=== PATIENT | female | born 1950 | race Caucasian/White ===

== ENCOUNTER 2016-11-11 20:24 | Emergency (ER) | payer MEDICARE ==
[~2016-11-11] VITALS: Ht 167.6 cm; Wt 72.7 kg
[~2016-11-11 20:24] MED LIST: ALLERGY RELIEF25 MG PO; CRESTOR10 MG PO; CYMBALTA60 MG MT; FLUOXETINE20 MG MT; GABAPENTIN300 MG MT; GLIPIZIDE ER2.5 MG PO; LEVOTHYROXIN25 MC1 MT; LEVOTHYROXIN50 MC1 PO; LISINOPRIL20 M1 PO; METOPROLOL SUC100 MG PO; OXYBUTYNIN5 MG MT; OXYCODONE HCL5 MG PO; PROZAC20 M1 PO; RESTORIL15 M1 PO; ZOFRAN4 MG/TAB PO; [UNRECOGNIZED DRUG - OTHER]
[2016-11-11 22:09] LABS: HEMATOCRIT 29.1 % (37.0-47.0); HEMOGLOBIN 9.6 g/dl (12.0-16.0); IMMATURE GRANULOCYTES 0.6 % (0.0-1.0); MEAN CELL VOLUME 99.7 fL CALC (80.0-100.0); MEAN CORPUSCULAR HGB 32.9 pG CALC (26.0-32.0); NEUT# 14.13 thou/uL (2.00-7.15); RED BLOOD COUNT 2.92 mill/uL (4.20-5.60); RED CELL DISTRI WIDTH 13.1 % (11.5-15.5)
[2016-11-11 22:21] LABS: ALBUMIN 3.3 g/dL (3.2-5.0); BILIRUBIN, TOTAL 0.4 mg/dL (0.0-1.4); CALCIUM 9.6 mg/dL (8.4-10.2); CREATININE 1.1 mg/dL (0.5-1.0); POTASSIUM 3.9 mmol/l (3.5-5.1); TOTAL PROTEIN 6.3 g/dL (6.3-8.2)
[2016-11-11 23:47] LABS: URINE BILIRUBIN - DIPSTICK NEGATIVE (NEGATIVE); URINE BLOOD DIPSTICK MODERATE (NEGATIVE); URINE CLARITY TURBID; URINE COLOR YELLOW; URINE GLUCOSE - DIPSTICK NEGATIVE (NEGATIVE); URINE KETONE TRACE mg/dL (NEGATIVE); URINE LEUK ESTERASE TRACE (NEGATIVE); URINE PROTEIN - DIPSTICK TRACE mg/dL (NEG-TRACE); URINE UROBILINOGEN - DIPSTICK 0.2 E.U./dL (0.2)
[2016-11-11 23:50] LABS: URINE NITRITE - DIPSTICK POSITIVE (Negative)
[2016-11-11 23:55] LABS: URINE SQUAMOUS EPITHELIAL CELL FEW EPI/hpf (0-FEW)
[2016-11-11 23:56] LABS: URINE AMORPH SEDIMENT MODERATE hpf (NONE-FEW); URINE BACTERIA MODERATE hpf; URINE MUCUS FEW hpf (NONE-FEW); URINE TRIP PHOS CRYSTALS MODERATE lpf
[2016-11-12] MEDS ORDERED: MORPHINE SUL15 M2 PO (00:25)
[2016-11-12 01:05] VITALS: BP 129/49
--- NOTE | 2016-11-12 01:32 | NUR ---
BREATHING TREATMENT GIVEN FOR WHEEZING. IT WAS EXPLAINT TO HER HOW TO DEPOSIT THE PARTICLES DOWN TO HER LUNGS BY TAKING DEEP BREATH IN.
== END 2016-11-12 01:40 | disposition short-term general hospital (02) ==
LOC: ED 20:24
PROVIDERS: Emergency Medicine
DX: T81.4XXA Infection following a procedure, initial encounter (principal); K52.9 Noninfective gastroenteritis and colitis, unspecified; N39.0 Urinary tract infection, site not specified; D72.829 Elevated white blood cell count, unspecified; R50.9 Fever, unspecified; F17.210 Nicotine dependence, cigarettes, uncomplicated; E11.9 Type 2 diabetes mellitus without complications; R11.10 Vomiting, unspecified; I10 Essential (primary) hypertension; B96.4 Proteus (mirabilis) (morganii) as the cause of diseases classified elsewhere

== ENCOUNTER 2016-12-02 14:21 | Emergency (ER) | payer MEDICARE ==
[~2016-12-02] VITALS: Ht 167.6 cm; Wt 72.7 kg
[~2016-12-02 14:21] MED LIST changes: +MORPHINE SUL15 M2 PO
[2016-12-02 15:01] LABS: HEMATOCRIT 38.2 % (37.0-47.0); HEMOGLOBIN 11.8 g/dl (12.0-16.0); IMMATURE GRANULOCYTES 2.2 % (0.0-1.0); MEAN CELL VOLUME 99.7 fL CALC (80.0-100.0); MEAN CORPUSCULAR HGB 30.8 pG CALC (26.0-32.0); MEAN CORPUSCULAR HGB CONC 30.9 g/L CALC (32.0-36.0); PLATELET COUNT 330 thou/uL (130-400); RED BLOOD COUNT 3.83 mill/uL (4.20-5.60); RED CELL DISTRI WIDTH 15.5 % (11.5-15.5)
[2016-12-02 15:08] LABS: ALBUMIN 3.5 g/dL (3.2-5.0); ALKALINE PHOSPHATASE 83 u/l (38-126); ANION GAP 17 (6-22 (CALC)); BUN 20 mg/dL (8-23); BUN/CREATININE RATIO 20 (12-20 (CALC)); CALCIUM 8.8 mg/dL (8.4-10.2); CARBON DIOXIDE 24 mmol/l (22-30); CHLORIDE 98 mmol/l (95-108); GFR 55 ML/MIN (>=60 (CALC)); GFR FOR AFR.AMER. > 60 ML/MIN (>=60 (CALC)); GLUCOSE 179 mg/dL (82-115); SGOT/AST 37 u/l (9-36); SGPT/ALT 52 u/l (11-66); SODIUM 133 mmol/l (137-146)
[2016-12-02 15:23] LABS: BAND 22 % (0-8); MANUAL DIFFERENTIAL YES
[2016-12-02] MEDS ORDERED: BACTRIM DS1 TAB PO (17:16)
[2016-12-02] MEDS ORDERED: OMNICEF300 M1 PO (17:16)
[2016-12-02 19:40] LABS: URINE BILIRUBIN - DIPSTICK NEGATIVE (NEGATIVE); URINE BLOOD DIPSTICK NEGATIVE (NEGATIVE); URINE CLARITY CLEAR; URINE COLOR YELLOW; URINE GLUCOSE - DIPSTICK NEGATIVE (NEGATIVE); URINE KETONE TRACE mg/dL (NEGATIVE); URINE LEUK ESTERASE NEGATIVE (NEGATIVE); URINE NITRITE - DIPSTICK NEGATIVE (Negative); URINE PH 5.5 (4.5-8.0); URINE PROTEIN - DIPSTICK TRACE mg/dL (NEG-TRACE); URINE SPECIFIC GRAVITY 1.025
[2016-12-03 01:04] VITALS: BP 105/50
== END 2016-12-03 01:03 | disposition short-term general hospital (02) ==
LOC: ED 14:21
PROVIDERS: Family Medicine
PROC: 02HV33Z Insertion of Infusion Device into Superior Vena Cava, Percutaneous Approach (ICD-10-PCS; principal; 2016-12-02)
DX: T81.4XXA Infection following a procedure, initial encounter (principal); L03.311 Cellulitis of abdominal wall; A41.9 Sepsis, unspecified organism; T81.31XA Disruption of external operation (surgical) wound, not elsewhere classified, initial encounter; R41.82 Altered mental status, unspecified; I10 Essential (primary) hypertension; E03.9 Hypothyroidism, unspecified; J44.9 Chronic obstructive pulmonary disease, unspecified; F32.9 Major depressive disorder, single episode, unspecified; F41.9 Anxiety disorder, unspecified; E11.40 Type 2 diabetes mellitus with diabetic neuropathy, unspecified; F17.210 Nicotine dependence, cigarettes, uncomplicated; Y83.8 Other surgical procedures as the cause of abnormal reaction of the patient, or of later complication, without mention of misadventure at the time of the procedure; Z89.612 Acquired absence of left leg above knee

== ENCOUNTER 2016-12-09 00:09 | Inpatient (IN) | payer MEDICARE ==
[2016-12-09] VITALS (20 sets, daily range): BP systolic 85–1172; BP diastolic 39–105
[~2016-12-09] VITALS: Ht 167.6 cm; Wt 91.8 kg
[~2016-12-09 00:09] MED LIST changes: +BACTRIM DS1 TAB PO; +OMNICEF300 M1 PO
[2016-12-09 01:31] LABS: URINE BILIRUBIN - DIPSTICK NEGATIVE (NEGATIVE); URINE BLOOD DIPSTICK MODERATE (NEGATIVE); URINE COLOR YELLOW; URINE GLUCOSE - DIPSTICK NEGATIVE (NEGATIVE); URINE KETONE 15 mg/dL (NEGATIVE); URINE LEUK ESTERASE NEGATIVE (NEGATIVE); URINE NITRITE - DIPSTICK NEGATIVE (Negative); URINE PROTEIN - DIPSTICK 30 mg/dL (NEG-TRACE); URINE SPECIFIC GRAVITY >=1.030; URINE UROBILINOGEN - DIPSTICK 0.2 E.U./dL (0.2)
[2016-12-09 01:53] LABS: URINE CLARITY SLIGHT CLOUDY
[2016-12-09 02:04] LABS: URINE BACTERIA FEW hpf; URINE COARSE GRANULAR CAST FEW lpf; URINE FINE GRAN CAST FEW lpf; URINE HYALINE CAST MODERATE lpf (NONE-RARE); URINE MUCUS FEW hpf (NONE-FEW); URINE SQUAMOUS EPITHELIAL CELL MODERATE EPI/hpf (0-FEW)
[2016-12-09 06:41] LABS: HEMATOCRIT 32.6 % (37.0-47.0); HEMOGLOBIN 10.6 g/dl (12.0-16.0); MEAN CELL VOLUME 92.1 fL CALC (80.0-100.0); MEAN CORPUSCULAR HGB 29.9 pG CALC (26.0-32.0); MEAN CORPUSCULAR HGB CONC 32.5 g/L CALC (32.0-36.0); PLATELET COUNT 282 thou/uL (130-400); RED BLOOD COUNT 3.54 mill/uL (4.20-5.60); RED CELL DISTRI WIDTH 16.6 % (11.5-15.5)
[2016-12-09 07:22] LABS: BAND 1 % (0-8); IMMATURE GRANULOCYTES 8.1 % (0.0-1.0); MANUAL DIFFERENTIAL YES
[2016-12-10] VITALS (13 sets, daily range): BP systolic 103–195; BP diastolic 51–94
[2016-12-10 09:41] LABS: HEMOGLOBIN 11.8 g/dl (12.0-16.0); MEAN CELL VOLUME 90.9 fL CALC (80.0-100.0); MEAN CORPUSCULAR HGB 29.8 pG CALC (26.0-32.0); MEAN CORPUSCULAR HGB CONC 32.8 g/L CALC (32.0-36.0); NEUT# 18.27 thou/uL (2.00-7.15); RED BLOOD COUNT 3.96 mill/uL (4.20-5.60); RED CELL DISTRI WIDTH 16.9 % (11.5-15.5)
[2016-12-10 09:43] LABS: IMMATURE GRANULOCYTES 7.6 % (0.0-1.0)
[2016-12-10 10:03] LABS: ANION GAP 14 (6-22 (CALC)); BUN 13 mg/dL (8-23); BUN/CREATININE RATIO 18 (12-20 (CALC)); CALCIUM 7.5 mg/dL (8.4-10.2); CARBON DIOXIDE 20 mmol/l (22-30); CHLORIDE 118 mmol/l (95-108); CREATININE 0.7 mg/dL (0.5-1.0); GFR > 60 ML/MIN (>=60 (CALC)); GFR FOR AFR.AMER. > 60 ML/MIN (>=60 (CALC)); GLUCOSE 166 mg/dL (82-115); POTASSIUM 2.5 mmol/l (3.5-5.1); SODIUM 149 mmol/l (137-146)
[2016-12-11] VITALS (13 sets, daily range): BP systolic 150–196; BP diastolic 66–94
[2016-12-11 07:34] LABS: HEMATOCRIT 34.7 % (37.0-47.0); HEMOGLOBIN 11.7 g/dl (12.0-16.0); IMMATURE GRANULOCYTES 4.6 % (0.0-1.0); MEAN CELL VOLUME 89.7 fL CALC (80.0-100.0); MEAN CORPUSCULAR HGB 30.2 pG CALC (26.0-32.0); MEAN CORPUSCULAR HGB CONC 33.7 g/L CALC (32.0-36.0); NEUT# 21.18 thou/uL (2.00-7.15); RED BLOOD COUNT 3.87 mill/uL (4.20-5.60); RED CELL DISTRI WIDTH 16.9 % (11.5-15.5)
[2016-12-11 07:52] LABS: ANION GAP 12 (6-22 (CALC)); BUN 18 mg/dL (8-23); BUN/CREATININE RATIO 23 (12-20 (CALC)); CALCIUM 7.6 mg/dL (8.4-10.2); CARBON DIOXIDE 23 mmol/l (22-30); CHLORIDE 121 mmol/l (95-108); CREATININE 0.8 mg/dL (0.5-1.0); GFR > 60 ML/MIN (>=60 (CALC)); GFR FOR AFR.AMER. > 60 ML/MIN (>=60 (CALC)); GLUCOSE 163 mg/dL (82-115); POTASSIUM 2.5 mmol/l (3.5-5.1); SODIUM 153 mmol/l (137-146)
[2016-12-11 12:16] LABS: HEMATOCRIT 35.2 % (37.0-47.0); HEMOGLOBIN 11.4 g/dl (12.0-16.0); IMMATURE GRANULOCYTES 3.8 % (0.0-1.0); MEAN CELL VOLUME 92.9 fL CALC (80.0-100.0); MEAN CORPUSCULAR HGB 30.1 pG CALC (26.0-32.0); MEAN CORPUSCULAR HGB CONC 32.4 g/L CALC (32.0-36.0); NEUT# 23.68 thou/uL (2.00-7.15); RED BLOOD COUNT 3.79 mill/uL (4.20-5.60); RED CELL DISTRI WIDTH 17.3 % (11.5-15.5)
[2016-12-11 21:48] LABS: HEMATOCRIT 35.7 % (37.0-47.0); HEMOGLOBIN 11.8 g/dl (12.0-16.0); IMMATURE GRANULOCYTES 3.5 % (0.0-1.0); MEAN CELL VOLUME 91.8 fL CALC (80.0-100.0); MEAN CORPUSCULAR HGB 30.3 pG CALC (26.0-32.0); MEAN CORPUSCULAR HGB CONC 33.1 g/L CALC (32.0-36.0); NEUT# 21.35 thou/uL (2.00-7.15); RED BLOOD COUNT 3.89 mill/uL (4.20-5.60); RED CELL DISTRI WIDTH 17.6 % (11.5-15.5)
[2016-12-11 22:07] LABS: ANION GAP 9 (6-22 (CALC)); BUN 18 mg/dL (8-23); BUN/CREATININE RATIO 29 (12-20 (CALC)); CALCIUM 7.5 mg/dL (8.4-10.2); CARBON DIOXIDE 23 mmol/l (22-30); CHLORIDE 122 mmol/l (95-108); CREATININE 0.6 mg/dL (0.5-1.0); GFR > 60 ML/MIN (>=60 (CALC)); GFR FOR AFR.AMER. > 60 ML/MIN (>=60 (CALC)); GLUCOSE 244 mg/dL (82-115); POTASSIUM 3.3 mmol/l (3.5-5.1); SODIUM 151 mmol/l (137-146)
[2016-12-12] VITALS (9 sets, daily range): BP systolic 92–165; BP diastolic 50–84
[2016-12-12 05:43] LABS: ANION GAP 8 (6-22 (CALC)); BUN 17 mg/dL (8-23); BUN/CREATININE RATIO 28 (12-20 (CALC)); CALCIUM 7.5 mg/dL (8.4-10.2); CARBON DIOXIDE 26 mmol/l (22-30); CHLORIDE 121 mmol/l (95-108); CREATININE 0.6 mg/dL (0.5-1.0); GFR > 60 ML/MIN (>=60 (CALC)); GFR FOR AFR.AMER. > 60 ML/MIN (>=60 (CALC)); GLUCOSE 266 mg/dL (82-115); POTASSIUM 3.2 mmol/l (3.5-5.1); SODIUM 152 mmol/l (137-146)
[2016-12-12 05:48] LABS: HEMATOCRIT 35.9 % (37.0-47.0); HEMOGLOBIN 11.8 g/dl (12.0-16.0); IMMATURE GRANULOCYTES 3.3 % (0.0-1.0); MEAN CELL VOLUME 91.6 fL CALC (80.0-100.0); MEAN CORPUSCULAR HGB 30.1 pG CALC (26.0-32.0); MEAN CORPUSCULAR HGB CONC 32.9 g/L CALC (32.0-36.0); NEUT# 19.29 thou/uL (2.00-7.15); RED BLOOD COUNT 3.92 mill/uL (4.20-5.60); RED CELL DISTRI WIDTH 17.3 % (11.5-15.5)
[2016-12-12 13:40] LABS: ANION GAP 9 (6-22 (CALC)); BUN 16 mg/dL (8-23); BUN/CREATININE RATIO 28 (12-20 (CALC)); CALCIUM 7.4 mg/dL (8.4-10.2); CARBON DIOXIDE 24 mmol/l (22-30); CHLORIDE 122 mmol/l (95-108); CREATININE 0.6 mg/dL (0.5-1.0); GFR > 60 ML/MIN (>=60 (CALC)); GFR FOR AFR.AMER. > 60 ML/MIN (>=60 (CALC)); GLUCOSE 279 mg/dL (82-115); POTASSIUM 3.5 mmol/l (3.5-5.1); SODIUM 151 mmol/l (137-146)
[2016-12-13 04:15] VITALS: BP 150/59
[2016-12-13 10:16] VITALS: BP 130/57
[2016-12-13 15:59] VITALS: BP 126/50
[2016-12-13 19:00] VITALS: BP 143/43
[2016-12-14 06:01] LABS: HEMATOCRIT 34.1 % (37.0-47.0); HEMOGLOBIN 10.9 g/dl (12.0-16.0); IMMATURE GRANULOCYTES 1.1 % (0.0-1.0); MEAN CELL VOLUME 93.4 fL CALC (80.0-100.0); MEAN CORPUSCULAR HGB 29.9 pG CALC (26.0-32.0); NEUT# 15.48 thou/uL (2.00-7.15); RED BLOOD COUNT 3.65 mill/uL (4.20-5.60); RED CELL DISTRI WIDTH 17.7 % (11.5-15.5)
[2016-12-14 06:13] LABS: ANION GAP 7 (6-22 (CALC)); BUN 12 mg/dL (8-23); BUN/CREATININE RATIO 23 (12-20 (CALC)); CALCIUM 7.2 mg/dL (8.4-10.2); CARBON DIOXIDE 25 mmol/l (22-30); CHLORIDE 116 mmol/l (95-108); CREATININE 0.5 mg/dL (0.5-1.0); GFR > 60 ML/MIN (>=60 (CALC)); GFR FOR AFR.AMER. > 60 ML/MIN (>=60 (CALC)); GLUCOSE 200 mg/dL (82-115); MAGNESIUM 1.7 mg/dL (1.6-2.3); POTASSIUM 3.3 mmol/l (3.5-5.1); SODIUM 145 mmol/l (137-146)
[2016-12-14 09:15] VITALS: BP 136/64
[2016-12-14 16:14] VITALS: BP 118/65
[2016-12-14 19:28] VITALS: BP 127/63
[2016-12-14 19:34] LABS: C. DIFFICILE TOXIN A&B NEGATIVE (NEGATIVE)
[2016-12-15 00:22] VITALS: BP 127/72
[2016-12-15 04:30] VITALS: BP 117/72
[2016-12-15 08:18] VITALS: BP 117/72
[2016-12-15 08:22] LABS: HEMATOCRIT 35.5 % (37.0-47.0); HEMOGLOBIN 11.6 g/dl (12.0-16.0); IMMATURE GRANULOCYTES 0.7 % (0.0-1.0); MEAN CELL VOLUME 92.7 fL CALC (80.0-100.0); MEAN CORPUSCULAR HGB 30.3 pG CALC (26.0-32.0); MEAN CORPUSCULAR HGB CONC 32.7 g/L CALC (32.0-36.0); NEUT# 14.51 thou/uL (2.00-7.15); RED BLOOD COUNT 3.83 mill/uL (4.20-5.60); RED CELL DISTRI WIDTH 17.5 % (11.5-15.5)
[2016-12-15 08:41] LABS: ANION GAP 9 (6-22 (CALC)); BUN 10 mg/dL (8-23); BUN/CREATININE RATIO 19 (12-20 (CALC)); CALCIUM 7.3 mg/dL (8.4-10.2); CARBON DIOXIDE 24 mmol/l (22-30); CHLORIDE 115 mmol/l (95-108); CREATININE 0.5 mg/dL (0.5-1.0); GFR > 60 ML/MIN (>=60 (CALC)); GFR FOR AFR.AMER. > 60 ML/MIN (>=60 (CALC)); GLUCOSE 191 mg/dL (82-115); MAGNESIUM 1.8 mg/dL (1.6-2.3); POTASSIUM 3.8 mmol/l (3.5-5.1); SODIUM 144 mmol/l (137-146)
[2016-12-15 19:00] VITALS: BP 137/81
[2016-12-16 04:20] VITALS: BP 137/69
[2016-12-16 08:23] LABS: HEMATOCRIT 35.3 % (37.0-47.0); HEMOGLOBIN 11.3 g/dl (12.0-16.0); IMMATURE GRANULOCYTES 1.1 % (0.0-1.0); MEAN CELL VOLUME 93.9 fL CALC (80.0-100.0); MEAN CORPUSCULAR HGB 30.1 pG CALC (26.0-32.0); NEUT# 18.08 thou/uL (2.00-7.15); RED BLOOD COUNT 3.76 mill/uL (4.20-5.60); RED CELL DISTRI WIDTH 17.8 % (11.5-15.5)
[2016-12-16 08:40] LABS: ANION GAP 12 (6-22 (CALC)); BUN 8 mg/dL (8-23); BUN/CREATININE RATIO 16 (12-20 (CALC)); CALCIUM 7.2 mg/dL (8.4-10.2); CARBON DIOXIDE 20 mmol/l (22-30); CHLORIDE 115 mmol/l (95-108); CREATININE 0.5 mg/dL (0.5-1.0); GFR > 60 ML/MIN (>=60 (CALC)); GFR FOR AFR.AMER. > 60 ML/MIN (>=60 (CALC)); GLUCOSE 119 mg/dL (82-115); POTASSIUM 3.7 mmol/l (3.5-5.1); SODIUM 143 mmol/l (137-146)
[2016-12-16 09:00] VITALS: BP 137/69
[2016-12-16 12:26] LABS: URINE BILIRUBIN - DIPSTICK NEGATIVE (NEGATIVE); URINE BLOOD DIPSTICK LARGE (NEGATIVE); URINE COLOR YELLOW; URINE GLUCOSE - DIPSTICK NEGATIVE (NEGATIVE); URINE KETONE NEGATIVE (NEGATIVE); URINE NITRITE - DIPSTICK NEGATIVE (Negative); URINE PROTEIN - DIPSTICK 100 mg/dL (NEG-TRACE); URINE SPECIFIC GRAVITY >=1.030; URINE UROBILINOGEN - DIPSTICK 0.2 E.U./dL (0.2)
[2016-12-16 12:29] LABS: URINE CLARITY HAZY; URINE LEUK ESTERASE SMALL (NEGATIVE)
[2016-12-16 12:30] LABS: URINE BACTERIA FEW hpf; URINE EPITHELIAL CELLS MODERATE EPI/hpf (0-FEW); URINE WBC 0-2 WBC/hpf (0-5)
[2016-12-16] MEDS ORDERED: NYSTOP100000 UNI TOP (13:31)
[2016-12-16] MEDS ORDERED: FLORASTOR250 M1 PO (13:31)
[2016-12-16 16:17] VITALS: BP 126/50
== END 2016-12-16 18:45 | DRG 372 ==
LOC: ICU 00:09 → MS2 00:09
PROVIDERS: Nurse Practitioner Family; ADMIT Internal Medicine; ATTEND Internal Medicine
PROC: 0T9B70Z Drainage of Bladder with Drainage Device, Via Natural or Artificial Opening (ICD-10-PCS; principal; 2016-12-09)
DX: A04.7 Enterocolitis due to Clostridium difficile (principal); T81.4XXA Infection following a procedure, initial encounter; E11.40 Type 2 diabetes mellitus with diabetic neuropathy, unspecified; F03.90 Unspecified dementia, unspecified severity, without behavioral disturbance, psychotic disturbance, mood disturbance, and anxiety; F05 Delirium due to known physiological condition; E51.2 Wernicke's encephalopathy; F23 Brief psychotic disorder; I10 Essential (primary) hypertension; E78.5 Hyperlipidemia, unspecified; J44.9 Chronic obstructive pulmonary disease, unspecified; I25.10 Atherosclerotic heart disease of native coronary artery without angina pectoris; E03.9 Hypothyroidism, unspecified; E87.6 Hypokalemia; E83.42 Hypomagnesemia; F10.20 Alcohol dependence, uncomplicated; S30.814A Abrasion of vagina and vulva, initial encounter; S30.810A Abrasion of lower back and pelvis, initial encounter; S30.811A Abrasion of abdominal wall, initial encounter; F19.90 Other psychoactive substance use, unspecified, uncomplicated; T40.2X5A Adverse effect of other opioids, initial encounter; X58.XXXA Exposure to other specified factors, initial encounter; Y83.8 Other surgical procedures as the cause of abnormal reaction of the patient, or of later complication, without mention of misadventure at the time of the procedure; Z87.891 Personal history of nicotine dependence; Z89.612 Acquired absence of left leg above knee
CPT/HCPCS: J1650; J2060; S0164; S0166

== ENCOUNTER 2017-01-09 10:53 | Emergency (ER) | payer MEDICARE ==
[~2017-01-09] VITALS: Ht 167.6 cm; Wt 73.0 kg
[~2017-01-09 10:53] MED LIST changes: +FLORASTOR250 M1 PO; +NYSTOP100000 UNI TOP
[2017-01-09 11:52] LABS: HEMATOCRIT 33.7 % (37.0-47.0); HEMOGLOBIN 10.5 g/dl (12.0-16.0); IMMATURE GRANULOCYTES 0.6 % (0.0-1.0); MEAN CELL VOLUME 98.5 fL CALC (80.0-100.0); MEAN CORPUSCULAR HGB 30.7 pG CALC (26.0-32.0); MEAN CORPUSCULAR HGB CONC 31.2 g/L CALC (32.0-36.0); NEUT# 7.11 thou/uL (2.00-7.15); RED BLOOD COUNT 3.42 mill/uL (4.20-5.60); RED CELL DISTRI WIDTH 17.5 % (11.5-15.5)
[2017-01-09 12:10] LABS: ACT PARTIAL THROMBO TIME 24.3 SECONDS (20.0-32.5); INTERNATIONAL NORMALIZED RATIO 0.9 RATIO (0.7-1.3)
[2017-01-09 12:11] LABS: ALKALINE PHOSPHATASE 93 u/l (38-126); ANION GAP 16 (6-22 (CALC)); BILIRUBIN, TOTAL 0.4 mg/dL (0.0-1.4); BUN 15 mg/dL (8-23); BUN/CREATININE RATIO 17 (12-20 (CALC)); CALCIUM 9.8 mg/dL (8.4-10.2); CARBON DIOXIDE 26 mmol/l (22-30); CHLORIDE 104 mmol/l (95-108); CREATININE 0.9 mg/dL (0.5-1.0); GFR > 60 ML/MIN (>=60 (CALC)); GFR FOR AFR.AMER. > 60 ML/MIN (>=60 (CALC)); GLUCOSE 91 mg/dL (82-115); POTASSIUM 3.8 mmol/l (3.5-5.1); SGOT/AST 32 u/l (9-36); SGPT/ALT 45 u/l (11-66); SODIUM 143 mmol/l (137-146); TOTAL PROTEIN 7.6 g/dL (6.3-8.2)
[2017-01-09 12:22] LABS: MYOGLOBIN 36 ng/mL (0 - 62)
[2017-01-09 13:18] VITALS: BP 133/64
== END 2017-01-09 13:19 | disposition short-term general hospital (02) ==
LOC: ED 10:53
PROVIDERS: Emergency Medicine
DX: I63.9 Cerebral infarction, unspecified (principal); I10 Essential (primary) hypertension; E03.9 Hypothyroidism, unspecified; F32.9 Major depressive disorder, single episode, unspecified; J44.9 Chronic obstructive pulmonary disease, unspecified; F41.9 Anxiety disorder, unspecified; F43.10 Post-traumatic stress disorder, unspecified; E11.40 Type 2 diabetes mellitus with diabetic neuropathy, unspecified; Z89.612 Acquired absence of left leg above knee; F17.210 Nicotine dependence, cigarettes, uncomplicated; R29.810 Facial weakness; R29.726 NIHSS score 26

== ENCOUNTER 2018-05-03 02:53 | Inpatient (IN) | payer MEDICARE, MEDICAID ==
[~2018-05-03] VITALS: Ht 167.6 cm; Wt 72.0 kg
--- NOTE | 2018-05-03 02:55 | NUR ---
A/O F FROM HOME VIA EMS WITH REPORTED SOB COUGH X 1 WEEK.SMOKES 1/2 PPD.WHEEZING BILAT BASES,OCC SPASMODIC SALES PROMOTION OFFICER COUGH W/P/D SKIN PINK MOIST OS
[2018-05-03] MEDS ORDERED: ASPIRIN 81 LOW81 MG (03:29)
--- NOTE | 2018-05-03 03:30 | NUR ---
PT TELLS ME SHE TAKES A BABY ASPIRIN DAILY SHE CONFIRMED THIS X3 WHEN QUERRIED ABOUT HER STATED ALLERGY TO ASPIRIN.
[2018-05-03 03:34] LABS: HEMATOCRIT 35.9 % (37.0-47.0); HEMOGLOBIN 11.9 g/dl (12.0-16.0); IMMATURE GRANULOCYTES 0.8 % (0.0-5.0); MEAN CELL VOLUME 97.8 fL CALC (80.0-100.0); MEAN CORPUSCULAR HGB 32.4 pG CALC (26.0-32.0); MEAN CORPUSCULAR HGB CONC 33.1 g/L CALC (32.0-36.0); NEUT# 9.67 thou/uL (2.00-7.15); RED BLOOD COUNT 3.67 mill/uL (4.20-5.60); RED CELL DISTRI WIDTH 13.2 % (11.5-15.5)
[2018-05-03 03:40] LABS: ALBUMIN 3.6 g/dL (3.2-5.0); ANION GAP 17 (6-22 (CALC)); BILIRUBIN, TOTAL 0.5 mg/dL (0.0-1.4); BUN 19 mg/dL (8-23); BUN/CREATININE RATIO 22 (12-20 (CALC)); CARBON DIOXIDE 22 mmol/l (22-30); CHLORIDE 103 mmol/l (95-108); CREATININE 0.9 mg/dL (0.5-1.0); GFR > 60 ML/MIN (>=60 (CALC)); GFR FOR AFR.AMER. > 60 ML/MIN (>=60 (CALC)); POTASSIUM 4.1 mmol/l (3.5-5.1); SODIUM 138 mmol/l (137-146); TOTAL PROTEIN 6.7 g/dL (6.3-8.2)
[2018-05-03 03:41] LABS: ALKALINE PHOSPHATASE 140 u/l (38-126); SGOT/AST 64 u/l (9-36)
[2018-05-03 03:53] LABS: MYOGLOBIN 94 ng/mL (0 - 62)
--- NOTE | 2018-05-03 03:53 | NUR ---
SPOUSE TO BEDSIDE.OCC V BELT COVERER COUGH NO RESP DISTRESS
[2018-05-03 04:10] LABS: URINE BILIRUBIN - DIPSTICK NEGATIVE (NEGATIVE); URINE BLOOD DIPSTICK MODERATE (NEGATIVE); URINE COLOR YELLOW; URINE GLUCOSE - DIPSTICK NEGATIVE (NEGATIVE); URINE KETONE 40 mg/dL (NEGATIVE); URINE LEUK ESTERASE NEGATIVE (NEGATIVE); URINE NITRITE - DIPSTICK POSITIVE (Negative); URINE PROTEIN - DIPSTICK 100 mg/dL (NEG-TRACE); URINE SPECIFIC GRAVITY >=1.030; URINE UROBILINOGEN - DIPSTICK 0.2 E.U./dL (0.2)
--- NOTE | 2018-05-03 04:27 | NUR ---
OCC ACOUSTIC WARFARE ANALYST PORFIRIO COUGH W/P/D SKIN JOKING WITH SO AND IN NO DISTRESS OR DISCOMFORT
[2018-05-03 04:46] LABS: URINE BACTERIA MANY hpf; URINE YEAST FEW hpf
--- NOTE | 2018-05-03 04:55 | NUR ---
PHONE REPORT TO NURSE SANA ON MS2
[2018-05-03 05:00] VITALS: BP 140/76
--- NOTE | 2018-05-03 05:00 | NUR ---
TO [facility] VIA STRETCHER ON TELE AND O2 IN STABLE CONDITION
--- NOTE | 2018-05-03 05:02 | NUR ---
PT FROM ER VIA STRETCHER WITH ER STAFF IN STABLE CONDITION. PT ASSISTED WITH STRECHER TO BED TRANSFER. PT IS A&O x3.IV FLUSHES WELL, NO REDNESS OR EDEMA. PT HAS AN ABOVE THE KNEE AMBUTATION TO LEFT LEG. ASSESMENT COMPLETED AT THIS TIME(SEE INTERVENTIONS) PT IS DISHEVELD AND DIRTY. NO SKIN ISSUES, SWELLING OR EDEMA. LUNG SOUNDS DIMINISHED, HEART SOUNDS NORMAL, BOWEL SOUNDS ACTIVE. 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 SWABBED NAIRS. PT HAS O2 @ 2L BUT REFUSES TO KEEP IT ON. PT CAN BECOME UNCOOPERATIVE AT TIME. PT ORIENTED TO CALL WHARTON, TV AND ROOM. NO NEEDS AT THIS TIME. PROVIDED WITH COFFEE AND WATER. CALL WHARTON IN REACH. WILL CONTINUE TO MONITOR.
--- NOTE | 2018-05-03 07:00 | NUR ---
SHIFT CHANGE REPORT, PT SLEEPING IN SEMI FOWLERS POSITION, BREATHING SHALLOW BUT EVEN, O2 CANULA OUT OF PLACE ON HEAD, TELE MONITOR IN PLACE, CALL [facility]ON IN REACH.
[2018-05-03 08:28] VITALS: BP 135/58
--- NOTE | 2018-05-03 12:00 | NUR ---
SAT UP ON SIDE OF BED AND HAD MEAL, LEFT TO RADIOLOGY FOR PROCEDURE AND RETURNED AT COMPLETION, C/O RIGHT-SIDED PAIN AT 8/10, CONCERN ADDRESSED, WILL CONTINUE TO MONITOR.
--- NOTE | 2018-05-03 12:00 | NUR ---
ATE MEAL HUNGRILY STATING SHE WAS HUNGRY AND THAT MEAL WAS DELICIOUS, ALL NEEDS ADDRESSED, CALL [facility] IN REACH.
--- NOTE | 2018-05-03 16:31 | NUR ---
RESTING IN BED AT THIS TIME, ALL NEEDS MET, FAMILY VISITIONG.
--- NOTE | 2018-05-03 16:34 | NUR ---
ASSISTED TO W/C AT THIS TIME AND TRANSPORTED OFF UNIT FOR PROCEDURE.
[2018-05-03 17:00] VITALS: BP 144/68
--- NOTE | 2018-05-03 19:00 | NUR ---
RECIEVED REPORT FROM DAY SHIFT NURSE. PT RESTING QUIETLY WATCHING TV. NO NEEDS AT THIS TIME. CALL BEL IN REACH. WILL CONTINUE TO MONITOR.
[2018-05-03 19:25] VITALS: BP 116/67
--- NOTE | 2018-05-03 21:04 | NUR ---
PT RESTING IN BED WATCHING TV. PT IS A&O x3 . ASSESMEBT COMPLETED ATT THIS TIME(SEE INTERVENTION) LUNGS SOUNDS CLEAR/ DIMINISHED, PRODUCTIVE COUGH NOTED, BOWEL SOUNDS ACTIVE,HEART SOUNDS NORMAL.NO SWELLING OR EDEMA. IV FLUSHES WELL. PT HAS NO NEEDS ATT THIS TIME. CALL WHARTON IN REACH. WILL CONTINUE TO MONITOR.
[2018-05-03 23:40] VITALS: BP 129/69
--- NOTE | 2018-05-03 23:40 | NUR ---
PT REQUESTING PAIN PILL AT THIS TIME FOR BACK PAIN OF 8/10. MEDICATED PER ORDER. NO OTHER NEEDS AT THIS TIME. CALL [facility]ON IN REACH. WILL CONTINUE TO MONITOR.
[2018-05-04 03:35] VITALS: BP 116/60
--- NOTE | 2018-05-04 04:00 | NUR ---
PT RESTING QUIETLY IN BED WITH EYES CLOSED. NO S/S OF DISTRESS. O2 @ 2L. CALL WHARTON IN REACH. WILL CONTINUE TO MONITOR.
[2018-05-04 05:46] LABS: HEMATOCRIT 34.5 % (37.0-47.0); HEMOGLOBIN 11.2 g/dl (12.0-16.0); MEAN CELL VOLUME 97.7 fL CALC (80.0-100.0); MEAN CORPUSCULAR HGB 31.7 pG CALC (26.0-32.0); MEAN CORPUSCULAR HGB CONC 32.5 g/L CALC (32.0-36.0); NEUT# 10.84 thou/uL (2.00-7.15); RED BLOOD COUNT 3.53 mill/uL (4.20-5.60); RED CELL DISTRI WIDTH 13.6 % (11.5-15.5)
[2018-05-04 06:03] LABS: ALBUMIN 3.3 g/dL (3.2-5.0); ALKALINE PHOSPHATASE 133 u/l (38-126); AMYLASE < 30 u/l (30-110); ANION GAP 17 (6-22 (CALC)); BILIRUBIN, TOTAL 0.2 mg/dL (0.0-1.4); BUN 34 mg/dL (8-23); BUN/CREATININE RATIO 35 (12-20 (CALC)); CARBON DIOXIDE 22 mmol/l (22-30); CHLORIDE 106 mmol/l (95-108); GFR 55 ML/MIN (>=60 (CALC)); GFR FOR AFR.AMER. > 60 ML/MIN (>=60 (CALC)); LIPASE 57 u/l (23-300); POTASSIUM 4.2 mmol/l (3.5-5.1); SODIUM 141 mmol/l (137-146); TOTAL PROTEIN 6.3 g/dL (6.3-8.2)
[2018-05-04 06:09] LABS: SGOT/AST 129 u/l (9-36)
[2018-05-04 06:10] LABS: MAGNESIUM 2.3 mg/dL (1.6-2.3)
--- NOTE | 2018-05-04 07:00 | NUR ---
SHIFT CHANGE REPORT, PT AWAKE AND ALERT SITTING UP IN BED, ABRUPT WITH RESPONSE WHEN ADDRESSED, EXCLAIMING, "WHATS SO GOOD ABOUT IT", AFTER NURSE SAID GOOD MORNING TO HER. SHE IS SET UP FOR MEAL AND READY TO EAT, CALL WHARTON IN REACH.
[2018-05-04 07:51] VITALS: BP 141/73
--- NOTE | 2018-05-04 09:38 | NUR ---
PT C/O OF SEVERE BACK PAIN @ 12/04 AT THIS TIME, STATED ULTRAM DOES NOT HELP AND REFUSES IT, ALSO STATED IF MD WILL NOT GIVE HER ANYTHIG STRONGER HE MIGHT WELL SEND HER HOME WHERE SHE CAN HAVE SOMETHING ELSE THAT WILL RELIEVE HER PAIN, WILL CONTINUE TO MONITOR.
--- NOTE | 2018-05-04 11:08 | NUR ---
PT C/O BURNING PAIN @ IV SITE WITH INFUSION/FLUSHING AND REQUEST TO REMOVE CATHETER, CATHETER REMOVED, WILL CONTINUE TO MONITOR.
[2018-05-04 11:24] VITALS: BP 122/61
[2018-05-04 14:57] VITALS: BP 128/68
--- NOTE | 2018-05-04 16:45 | NUR ---
PT WENT DOWN FOR PROCEDURE AND RETURNED TO ROOM, ASSISTED WITH TRANSFER FROM STRETCHER TO BED, REQUESTING PAIN MED AGAIN, INFORMED NO NEW ORDER HAS BEEN RECEIVED, WILL CONTINUE TO MONITOR.
--- NOTE | 2018-05-04 19:15 | NUR ---
BEDSIDE REPORT RECEIVED BY DAY NURSE. PT IS AWAKE, POC DISCUSSED, MEDICATIONS DISCUSSED. PT ENCOURAGED TO CALL IF ANY NEEDS ARISE. AIDE IS IN W/PT
[2018-05-04 19:30] VITALS: BP 160/64
--- NOTE | 2018-05-04 22:02 | NUR ---
PT MEDICATED ORDERS PROVIDE AND ASSISTED TO BSC, PT TRANSFERRED WELL W/MAX ASSIST OF ONE PERSON. PT LOCX4, SKIN INTACT/BRUISING TO LOWER EXT BILAT, LUNG SOUNDS DIM/WHEEZING THROUGHOUT POST, LEFT SIDE WEAKNESS. POC AND MEDICATIONS DISCUSSED AND PT ENCOURAGED TO CALL NEEDS ARISE AND FOR ASSISTANCE GETTING TO BSC. CALL LIGHT IN HAND.
[2018-05-04 23:50] VITALS: BP 120/66
--- NOTE | 2018-05-05 02:40 | NUR ---
PT APPEARS TO BE SLEEPING AT THIS TIME. NO S/O DISTRESS NOTED. CALL LIGHT AT BEDSIDE.
[2018-05-05 04:00] VITALS: BP 140/86
[2018-05-05 05:12] LABS: HEMATOCRIT 34.1 % (37.0-47.0); HEMOGLOBIN 11.1 g/dl (12.0-16.0); MEAN CELL VOLUME 97.7 fL CALC (80.0-100.0); MEAN CORPUSCULAR HGB 31.8 pG CALC (26.0-32.0); MEAN CORPUSCULAR HGB CONC 32.6 g/L CALC (32.0-36.0); PLATELET COUNT 272 thou/uL (130-400); RED BLOOD COUNT 3.49 mill/uL (4.20-5.60); RED CELL DISTRI WIDTH 14.2 % (11.5-15.5)
[2018-05-05 05:26] LABS: ALBUMIN 3.2 g/dL (3.2-5.0); ALKALINE PHOSPHATASE 137 u/l (38-126); ANION GAP 15 (6-22 (CALC)); BILIRUBIN, TOTAL 0.2 mg/dL (0.0-1.4); BUN 28 mg/dL (8-23); BUN/CREATININE RATIO 29 (12-20 (CALC)); CARBON DIOXIDE 25 mmol/l (22-30); CHLORIDE 107 mmol/l (95-108); GFR 55 ML/MIN (>=60 (CALC)); GFR FOR AFR.AMER. > 60 ML/MIN (>=60 (CALC)); MAGNESIUM 1.9 mg/dL (1.6-2.3); POTASSIUM 3.9 mmol/l (3.5-5.1); SGOT/AST 118 u/l (9-36); SODIUM 142 mmol/l (137-146); TOTAL PROTEIN 6.1 g/dL (6.3-8.2)
[2018-05-05 05:44] LABS: BAND 7 % (0-8); MANUAL DIFFERENTIAL YES
[2018-05-05 05:46] LABS: HYPOCHROMIA FEW; MICROCYTOSIS FEW; PLATELET ESTIMATE NORMAL
--- NOTE | 2018-05-05 06:38 | NUR ---
pt medicated for pain 8/ generalized. midline flushed and heparanized at this time. denies any other needs at this time.
--- NOTE | 2018-05-05 07:00 | NUR ---
SHIFT CHANGE REPORT, PT AWAKE ALERT AND ORIENTED, HAVING AM CARE AT THIS TIME, O2 @ 2L VIA NC IN PLACE, NO C/O DISCOMFORT, CALL WHARTON IN REACH.
[2018-05-05 07:57] VITALS: BP 136/56
--- NOTE | 2018-05-05 09:34 | NUR ---
ASKING FOR PAIN MED AT THIS TIME BUT STATES SHE DOES NOT WANT TRAMADOL WHICH IS THE ONLY ANALGESIC ORDERED AT THIS TIME, WILL CONTINUE TO MONITOR.
[2018-05-05 11:10] VITALS: BP 144/66
--- NOTE | 2018-05-05 14:28 | NUR ---
RESTING IN BED WITH FAMILY VISITING NOW, REPORT SHE FEELS MUCH MORE COMFORTABLE NOW THAT SHE IS GETTING SOMETHING STRONGER FOR HER PAIN, WILL CONTINUE TO MONITOR.
[2018-05-05 15:05] VITALS: BP 145/72
--- NOTE | 2018-05-05 15:09 | NUR ---
DR VIC NAVARRO, PT C/O BEING UNABLE TO HEAR FROM RIGHT EAR SINCE BEING ADMITTED HERE THIS TIME, PLAN TO FOLLOW-UP WITH ENT SPECIALIST.
--- NOTE | 2018-05-05 19:00 | NUR ---
REPORT RECIVED FROM JORDAN CHAMBERLAIN. PT RESTING IN BED. PT DENIES ANY NEEDS AT THIS TIME. SAFETY PRECAUTIONS IN PLACE WILL CONTINUE TO MONITOR.
[2018-05-05 19:12] VITALS: BP 132/69
--- NOTE | 2018-05-05 20:00 | NUR ---
PT RESTING UPRIGHT IN BED. ALERT AND ORIENTED. ASSESSMENT COMPLETED. RESPIRATIONS SHALLOW, ON O2 @ 2L VIA NC, WHEEZES NOTED IN UPPER LUNG FERNANDEZ. TELE MONITOR IN PLACE. CALL LIGHT W/IN REACH. WILL CONTINUE TO MONITOR.
--- NOTE | 2018-05-05 20:48 | NUR ---
PT MEDICATED ORDERS PROVIDE FOR PAIN REPORTED IN RIGHT LOWER BACK FLANK AND RIGHT EAR. PT CALLED ON LIGHT EVERY 10 SEC'S FOR THE LAST COUPLE OF MINUTES DEMANDING PAIN MEDICATIONS DESPITE BEING REASSURED HER NURSE WAS ATTEMPTING TO PULL MEDICATIONS AT THIS TIME. PT REFUSED COMFORT MEASURES, I TALKED HER INTO PLACING WARM PACKS ON HER BACK FLANK AREA. PT O2 WAS OFF AND THROWN ON THE FLOOR, I ASSISTED HER TO REPLACE NC. SHE C/O DISCOMFORT W/NC AROUND NASAL AREA/HUMIDITY IS ON, PT PROVIDED LUBRICATING GEL FOR COMFORT PER REQUEST. PT ASSISTED IN REPOSITIONING W/WARM PACKS. POC DISCUSSED AND MEDICATION SCHEDULE REVIEWED. PT DENIES ANY OTHER NEEDS AT THIS TIME. CALL LIGHT IS IN HAND. PT APPEARED CALM UPON LEAVING ROOM.
--- NOTE | 2018-05-05 21:00 | NUR ---
RETURNED TO DO RECHECK ON PT, SHE IS UPRIGHT IN BED W/WARMPACK TO BACK WATCHING TV. PT APPEARS TO BE IN MUCH BETTER SPIRITS, PT WAS TALKATIVE AND REPORTING FEELING BETTER AND DENIED NEEDING ANYTHING ELSE AT THIS TIME. WILL CONTINUE TO MONITOR. PT ENCOURAGED TO CALL IF ANY OTHER NEEDS ARISE, CALL LIGHT IN HAND.
[2018-05-05 23:38] VITALS: BP 158/88
--- NOTE | 2018-05-06 | NUR ---
PT RESTING IN BED. ALERT AND ORIENTED. PT ASKING TO USE BSC ASSISTED PT TO BSC AND BACK TO BED, TOLERATED WELL. HELP PT REPLACE NC, AFTER UNTANGLING IT FROM HER IV AND CALL [facility]ON. PT DENIES ANY NEEDS AT THIS TIME. SAFETY PRECAUTIONS IN PLACE. CALL LIGHT W/IN REACH. WILL CONTINUE TO MONITOR.
--- NOTE | 2018-05-06 04:10 | NUR ---
PT ASSISTED TO BSC AND BACK TO BED. MIDLINE FLUSHED W/NS AND HEPARIN ORDERS PROVIDE. PT DENIES ANY NEEDS AT THIS TIME. CALL LIGHT IS AT BEDSIDE AND PT ENCOURAGED TO CALL NEEDS ARISE.
[2018-05-06 04:20] VITALS: BP 166/78
--- NOTE | 2018-05-06 05:00 | NUR ---
BP ELEVATED @ 166/78. PT MEDICATED FOR PAIN, WILL REASSESS BP AND PAIN LEVEL.
[2018-05-06 05:19] LABS: HEMOGLOBIN 12.4 g/dl (12.0-16.0); MEAN CORPUSCULAR HGB 32.7 pG CALC (26.0-32.0); MEAN CORPUSCULAR HGB CONC 34.4 g/L CALC (32.0-36.0); RED BLOOD COUNT 3.79 mill/uL (4.20-5.60); RED CELL DISTRI WIDTH 18.2 % (11.5-15.5)
[2018-05-06 05:54] LABS: ANION GAP 18 (6-22 (CALC)); BUN 23 mg/dL (8-23); BUN/CREATININE RATIO 28 (12-20 (CALC)); CARBON DIOXIDE 23 mmol/l (22-30); CHLORIDE 105 mmol/l (95-108); CREATININE 0.8 mg/dL (0.5-1.0); GFR > 60 ML/MIN (>=60 (CALC)); GFR FOR AFR.AMER. > 60 ML/MIN (>=60 (CALC)); SODIUM 141 mmol/l (137-146)
[2018-05-06 05:57] LABS: POTASSIUM 4.8 mmol/l (3.5-5.1)
[2018-05-06 07:17] VITALS: BP 145/79
[2018-05-06 07:24] LABS: ALBUMIN 3.5 g/dL (3.2-5.0); BILIRUBIN, TOTAL 0.4 mg/dL (0.0-1.4); TOTAL PROTEIN 6.7 g/dL (6.3-8.2)
--- NOTE | 2018-05-06 07:42 | NUR ---
SHIFT REPORT, PT AWAKE ALERT AND ORIENTED, NO C/O DISCOMFORT AT THIS TIME, PREPARING FOR SHOWER, O2 @ 2L VIA NC IN PLACE AND TELE MONITOR ON.
[2018-05-06 11:00] VITALS: BP 146/75
--- NOTE | 2018-05-06 12:03 | NUR ---
SITTING UP IN BED HAVING MEAL AT THIS TIME, PAIN CONCERNS ADDRESSED, ALL NEEDS MET.
[2018-05-06] MEDS ORDERED: DOXYCYCL HYC100 MG PO (14:45)
[2018-05-06] MEDS ORDERED: MIRTAZAPINE15 MG PO (14:45)
[2018-05-06] MEDS ORDERED: SMZ-TMP DS1 TAB PO (14:45)
[2018-05-06] MEDS ORDERED: LORTAB 7.57.5 MG PO (14:45)
[2018-05-06] MEDS ORDERED: PREDNISONE10 MG PO (14:47)
[2018-05-06] MEDS ORDERED: IPRATROPIU0.5 MG/3 M IN (14:47)
[2018-05-06 15:24] VITALS: BP 160/55
--- NOTE | 2018-05-06 15:57 | NUR ---
Discharge instructions given. Patient verbalizes understanding of same. Discharged in fair condition via Wheelchair to Home with spouse. All belongings sent with pt.
== END 2018-05-06 15:55 | disposition home health service (06) | DRG 190 ==
LOC: ED 02:53 → ED-I 04:00 → ED 04:28 → MS2 04:29
PROVIDERS: Emergency Medicine; Internal Medicine; ADMIT Internal Medicine Nephrology; ATTEND Internal Medicine Nephrology
PROC: 05H933Z Insertion of Infusion Device into Right Brachial Vein, Percutaneous Approach (ICD-10-PCS; principal; 2018-05-04)
PROC: B51MZZA Fluoroscopy of Right Upper Extremity Veins, Guidance (ICD-10-PCS; 2018-05-04)
DX: J44.1 Chronic obstructive pulmonary disease with (acute) exacerbation (principal); J18.9 Pneumonia, unspecified organism; N39.0 Urinary tract infection, site not specified; J44.0 Chronic obstructive pulmonary disease with (acute) lower respiratory infection; I10 Essential (primary) hypertension; E11.40 Type 2 diabetes mellitus with diabetic neuropathy, unspecified; I25.10 Atherosclerotic heart disease of native coronary artery without angina pectoris; H66.93 Otitis media, unspecified, bilateral; E78.5 Hyperlipidemia, unspecified; E03.9 Hypothyroidism, unspecified; F17.210 Nicotine dependence, cigarettes, uncomplicated; R74.8 Abnormal levels of other serum enzymes; F32.9 Major depressive disorder, single episode, unspecified; H60.93 Unspecified otitis externa, bilateral; B96.20 Unspecified Escherichia coli [E. coli] as the cause of diseases classified elsewhere; Z91.09 Other allergy status, other than to drugs and biological substances; Z89.612 Acquired absence of left leg above knee; Z88.0 Allergy status to penicillin; Z86.73 Personal history of transient ischemic attack (TIA), and cerebral infarction without residual deficits
CPT/HCPCS: G0378

== ENCOUNTER 2018-05-09 11:58 | Emergency (ER) | payer MEDICARE, MEDICAID ==
[~2018-05-09] VITALS: Ht 167.6 cm; Wt 80.0 kg
[~2018-05-09 11:58] MED LIST changes: +ASPIRIN 81 LOW81 MG; +DOXYCYCL HYC100 MG PO; +IPRATROPIU0.5 MG/3 M IN; +LORTAB 7.57.5 MG PO; +MIRTAZAPINE15 MG PO; +PREDNISONE10 MG PO; +SMZ-TMP DS1 TAB PO
[2018-05-09] MEDS ORDERED: HYDROCO/APAP1 TA9 PO (14:05)
[2018-05-09 14:29] VITALS: BP 123/57
== END 2018-05-09 14:29 | disposition home or self-care (01) ==
LOC: ED 11:58
PROC: 2W39X1Z Immobilization of Left Upper Extremity using Splint (ICD-10-PCS; principal; 2018-05-09)
DX: S52.022A Displaced fracture of olecranon process without intraarticular extension of left ulna, initial encounter for closed fracture (principal); E11.9 Type 2 diabetes mellitus without complications; I10 Essential (primary) hypertension; F17.210 Nicotine dependence, cigarettes, uncomplicated; W08.XXXA Fall from other furniture, initial encounter; Y92.009 Unspecified place in unspecified non-institutional (private) residence as the place of occurrence of the external cause; Z86.73 Personal history of transient ischemic attack (TIA), and cerebral infarction without residual deficits

== ENCOUNTER 2018-05-16 00:36 | Emergency (ER) | payer MEDICARE, MEDICAID ==
[~2018-05-16] VITALS: Ht 167.6 cm; Wt 72.7 kg
[~2018-05-16 00:36] MED LIST changes: +HYDROCO/APAP1 TA9 PO
[2018-05-16 01:11] LABS: HEMATOCRIT 35.8 % (37.0-47.0); HEMOGLOBIN 11.6 g/dl (12.0-16.0); IMMATURE GRANULOCYTES 0.8 % (0.0-5.0); MEAN CELL VOLUME 98.6 fL CALC (80.0-100.0); MEAN CORPUSCULAR HGB CONC 32.4 g/L CALC (32.0-36.0); NEUT# 9.96 thou/uL (2.00-7.15); RED BLOOD COUNT 3.63 mill/uL (4.20-5.60); RED CELL DISTRI WIDTH 14.6 % (11.5-15.5)
[2018-05-16 01:37] LABS: ALBUMIN 3.6 g/dL (3.2-5.0); ALKALINE PHOSPHATASE 107 u/l (38-126); BILIRUBIN, TOTAL 0.3 mg/dL (0.0-1.4); BUN 59 mg/dL (8-23); BUN/CREATININE RATIO 49 (12-20 (CALC)); CARBON DIOXIDE 20 mmol/l (22-30); CHLORIDE 102 mmol/l (95-108); CREATININE 1.2 mg/dL (0.5-1.0); GFR 45 ML/MIN (>=60 (CALC)); GFR FOR AFR.AMER. 54 ML/MIN (>=60 (CALC)); SGOT/AST 14 u/l (9-36); TOTAL PROTEIN 6.6 g/dL (6.3-8.2)
[2018-05-16 01:38] LABS: ANION GAP 16 (6-22 (CALC)); SODIUM 132 mmol/l (137-146)
[2018-05-16 01:39] LABS: POTASSIUM 6.1 mmol/l (3.5-5.1)
[2018-05-16 01:51] LABS: MYOGLOBIN 17 ng/mL (0 - 62)
[2018-05-16 02:09] LABS: TSH, 3RD GENERATION 3.11 uIU/mL (0.47 - 4.68)
[2018-05-16 02:10] VITALS: BP 149/70
== END 2018-05-16 02:00 | disposition short-term general hospital (02) ==
LOC: ED 00:36
PROVIDERS: Emergency Medicine
DX: R00.1 Bradycardia, unspecified (principal); E87.5 Hyperkalemia; E11.9 Type 2 diabetes mellitus without complications; F17.200 Nicotine dependence, unspecified, uncomplicated; Z86.73 Personal history of transient ischemic attack (TIA), and cerebral infarction without residual deficits; R06.02 Shortness of breath

== ENCOUNTER → 2018-06-11 | Outpatient (REF) | payer MEDICARE, MEDICAID | END | disposition home or self-care (01) | LOC: DI 13:01 | PROVIDERS: ATTEND Orthopaedic Surgery | DX: S52.022D Displaced fracture of olecranon process without intraarticular extension of left ulna, subsequent encounter for closed fracture with routine healing (principal) ==

== ENCOUNTER 2018-07-29 09:06 | Inpatient (IN) | payer MEDICARE, MEDICAID ==
[~2018-07-29] VITALS: Ht 167.6 cm; Wt 73.2 kg
[~2018-07-29 09:06] MED LIST changes: -ASPIRIN 81 LOW81 MG; +ASPIRIN 81 LOW81 MG PO
[2018-07-29 12:28] VITALS: BP 152/65
[2018-07-29 13:15] VITALS: BP 152/65
[2018-07-29 15:17] VITALS: BP 121/55
[2018-07-29 16:00] VITALS: BP 141/63
[2018-07-29 17:19] LABS: PROTHROMBIN TIME 10.6 SECONDS (9.0-12.5)
[2018-07-29 17:22] LABS: ALBUMIN 3.9 g/dL (3.2-5.0); ALKALINE PHOSPHATASE 149 u/l (38-126); BILIRUBIN, TOTAL 0.4 mg/dL (0.0-1.4); BUN 26 mg/dL (8-23); BUN/CREATININE RATIO 37 (12-20 (CALC)); CARBON DIOXIDE 22 mmol/l (22-30); CHLORIDE 108 mmol/l (95-108); CREATININE 0.7 mg/dL (0.5-1.0); GFR > 60 ML/MIN (>=60 (CALC)); GFR FOR AFR.AMER. > 60 ML/MIN (>=60 (CALC)); SGOT/AST 15 u/l (9-36); TOTAL PROTEIN 6.6 g/dL (6.3-8.2)
[2018-07-29 17:23] LABS: ANION GAP 14 (6-22 (CALC)); POTASSIUM 4.8 mmol/l (3.5-5.1); SODIUM 139 mmol/l (137-146)
[2018-07-29 17:44] LABS: HEMATOCRIT 38.8 % (37.0-47.0); HEMOGLOBIN 12.4 g/dl (12.0-16.0); IMMATURE GRANULOCYTES 0.5 % (0.0-5.0); MEAN CELL VOLUME 98.5 fL CALC (80.0-100.0); MEAN CORPUSCULAR HGB 31.5 pG CALC (26.0-32.0); NEUT# 10.44 thou/uL (2.00-7.15); RED BLOOD COUNT 3.94 mill/uL (4.20-5.60); RED CELL DISTRI WIDTH 12.5 % (11.5-15.5)
[2018-07-29 17:46] LABS: BARBITURATES NEGATIVE (NEGATIVE); COCAINE NEGATIVE (NEGATIVE); METHADONE NEGATIVE (NEGATIVE); OXCYCODONE NEGATIVE (NEGATIVE); TETRAHYDROCANNABIONOL NEGATIVE (NEGATIVE); TRICYLIC ANTIDEPRESSANTS NEGATIVE (NEGATIVE)
[2018-07-29 18:13] LABS: URINE BILIRUBIN - DIPSTICK NEGATIVE (NEGATIVE); URINE BLOOD DIPSTICK NEGATIVE (NEGATIVE); URINE COLOR YELLOW; URINE GLUCOSE - DIPSTICK NEGATIVE (NEGATIVE); URINE KETONE NEGATIVE (NEGATIVE); URINE LEUK ESTERASE NEGATIVE (NEGATIVE); URINE PH 5.5 (4.5-8.0); URINE PROTEIN - DIPSTICK NEGATIVE (NEG-TRACE); URINE SPECIFIC GRAVITY >=1.030; URINE UROBILINOGEN - DIPSTICK 0.2 E.U./dL (0.2)
[2018-07-29 18:26] LABS: URINE NITRITE - DIPSTICK POSITIVE (Negative); URINE SQUAMOUS EPITHELIAL CELL FEW EPI/hpf (0-FEW)
[2018-07-29 18:27] LABS: URINE BACTERIA MANY hpf
[2018-07-29 19:10] VITALS: BP 102/59
[2018-07-30 04:25] VITALS: BP 140/74
[2018-07-30 05:26] LABS: HEMATOCRIT 40.2 % (37.0-47.0); HEMOGLOBIN 12.6 g/dl (12.0-16.0); IMMATURE GRANULOCYTES 0.4 % (0.0-5.0); MEAN CELL VOLUME 100.2 fL CALC (80.0-100.0); MEAN CORPUSCULAR HGB 31.4 pG CALC (26.0-32.0); MEAN CORPUSCULAR HGB CONC 31.3 g/L CALC (32.0-36.0); NEUT# 6.91 thou/uL (2.00-7.15); RED BLOOD COUNT 4.01 mill/uL (4.20-5.60); RED CELL DISTRI WIDTH 12.6 % (11.5-15.5)
[2018-07-30 05:47] LABS: ACT PARTIAL THROMBO TIME 24.3 SECONDS (20.0-32.5)
[2018-07-30 05:49] LABS: ALBUMIN 4.1 g/dL (3.2-5.0); ALKALINE PHOSPHATASE 149 u/l (38-126); AMYLASE 53 u/l (30-110); ANION GAP 14 (6-22 (CALC)); BILIRUBIN, TOTAL 0.4 mg/dL (0.0-1.4); BUN 30 mg/dL (8-23); BUN/CREATININE RATIO 41 (12-20 (CALC)); CARBON DIOXIDE 24 mmol/l (22-30); CHLORIDE 109 mmol/l (95-108); CREATININE 0.7 mg/dL (0.5-1.0); GFR > 60 ML/MIN (>=60 (CALC)); GFR FOR AFR.AMER. > 60 ML/MIN (>=60 (CALC)); LIPASE 58 u/l (23-300); POTASSIUM 4.6 mmol/l (3.5-5.1); SGOT/AST 14 u/l (9-36); SODIUM 142 mmol/l (137-146); TOTAL PROTEIN 6.8 g/dL (6.3-8.2)
[2018-07-30 07:55] VITALS: BP 109/64
[2018-07-30 16:00] VITALS: BP 109/54
[2018-07-30 19:00] VITALS: BP 105/50
[2018-07-31 00:11] VITALS: BP 122/38
[2018-07-31 04:13] VITALS: BP 95/38
[2018-07-31 05:21] LABS: HEMATOCRIT 35.6 % (37.0-47.0); HEMOGLOBIN 11.4 g/dl (12.0-16.0); IMMATURE GRANULOCYTES 0.4 % (0.0-5.0); MEAN CELL VOLUME 100.6 fL CALC (80.0-100.0); MEAN CORPUSCULAR HGB 32.2 pG CALC (26.0-32.0); NEUT# 10.71 thou/uL (2.00-7.15); RED BLOOD COUNT 3.54 mill/uL (4.20-5.60); RED CELL DISTRI WIDTH 12.7 % (11.5-15.5)
[2018-07-31 05:43] LABS: ALBUMIN 3.9 g/dL (3.2-5.0); ALKALINE PHOSPHATASE 138 u/l (38-126); ANION GAP 15 (6-22 (CALC)); BILIRUBIN, TOTAL 0.4 mg/dL (0.0-1.4); BUN 29 mg/dL (8-23); BUN/CREATININE RATIO 35 (12-20 (CALC)); CARBON DIOXIDE 25 mmol/l (22-30); CHLORIDE 105 mmol/l (95-108); CREATININE 0.8 mg/dL (0.5-1.0); GFR > 60 ML/MIN (>=60 (CALC)); GFR FOR AFR.AMER. > 60 ML/MIN (>=60 (CALC)); MAGNESIUM 2.1 mg/dL (1.6-2.3); POTASSIUM 4.5 mmol/l (3.5-5.1); SGOT/AST 17 u/l (9-36); SODIUM 140 mmol/l (137-146); TOTAL PROTEIN 6.5 g/dL (6.3-8.2)
[2018-07-31 07:44] VITALS: BP 115/51
[2018-07-31 14:50] VITALS: BP 102/55
[2018-07-31 19:00] VITALS: BP 118/63
[2018-08-01] VITALS (7 sets, daily range): BP systolic 80–110; BP diastolic 50–74
[2018-08-02 04:10] VITALS: BP 153/77
[2018-08-02 07:52] VITALS: BP 145/72
[2018-08-02 15:22] VITALS: BP 106/60
[2018-08-02 19:00] VITALS: BP 125/71
[2018-08-03 04:00] VITALS: BP 110/66
[2018-08-03 07:44] VITALS: BP 108/62
[2018-08-03 15:00] VITALS: BP 142/79
[2018-08-03 19:56] VITALS: BP 137/68
== END 2018-08-03 11:00 | DRG 536 ==
LOC: ED 09:06 → ED-I 10:26 → ED 10:41 → MS2 10:42
PROVIDERS: Nurse Practitioner Family; ADMIT Internal Medicine Nephrology; ATTEND Internal Medicine Nephrology
DX: S72.142A Displaced intertrochanteric fracture of left femur, initial encounter for closed fracture (principal); N39.0 Urinary tract infection, site not specified; I10 Essential (primary) hypertension; F10.10 Alcohol abuse, uncomplicated; J43.9 Emphysema, unspecified; E03.9 Hypothyroidism, unspecified; K59.00 Constipation, unspecified; E11.40 Type 2 diabetes mellitus with diabetic neuropathy, unspecified; I25.10 Atherosclerotic heart disease of native coronary artery without angina pectoris; E78.5 Hyperlipidemia, unspecified; F17.210 Nicotine dependence, cigarettes, uncomplicated; B96.20 Unspecified Escherichia coli [E. coli] as the cause of diseases classified elsewhere; W01.0XXA Fall on same level from slipping, tripping and stumbling without subsequent striking against object, initial encounter; Z86.14 Personal history of Methicillin resistant Staphylococcus aureus infection; Z79.84 Long term (current) use of oral hypoglycemic drugs; Z89.612 Acquired absence of left leg above knee; Z86.73 Personal history of transient ischemic attack (TIA), and cerebral infarction without residual deficits

== ENCOUNTER 2018-08-04 18:42 | Observation (INO) | payer MEDICARE, MEDICAID ==
[~2018-08-04] VITALS: Ht 167.6 cm; Wt 68.0 kg
[2018-08-04 18:24] VITALS: BP 101/52
--- NOTE | 2018-08-04 18:48 | NUR ---
REPORT RECEIVED FROM [facility]; PT ARRIVED ON FLOOR @1820 VIA MEDICAL TRANSPORT; ASSISTED TO BED; VITALS TAKEN BY LIEUTENANT FIRE FIGHTER; PT ASK FOR BEDPAN, LIEUTENANT FIRE FIGHTER AND HEAD OF IT ASSISTED PT ON TO BEDPAN; DARBY DRAINING DARK TEA COLOR URINE; EMPTIED 100CC URINE; LEG STRAP SECURE; PT A/O; ORIENT TO ROOM AND CALL [facility] SYSTEM;
--- NOTE | 2018-08-04 18:54 | NUR ---
SPOKE TO AT [phone] REGARDING BOWEL OBSTRUCTION. TOLD PT NAME, ROOM NUMBER AND WHY SHE WAS BROUGHT HERE. HE STATED " THANK YOU FOR LETTING ME KNOW".
--- NOTE | 2018-08-04 19:31 | NUR ---
ENTERED ROOM AND NOTICED PT DARBY CATH WAS OUT WITH BALLOON INTACT; PT SEEMS RESTLESS; INFORMED NIGHT NURSE OF DARBY; ALSO INFORMED NIGHT NURSE I CALLED ER TO START NEW IV;
--- NOTE | 2018-08-04 20:00 | NUR ---
PATIENT RESTING IN BED AT THIS TIME. PATIENT IS AWAKE ALERT BUT NO ALWAYS APPROPRIATE. PATIENT IS NPO. IV SITE STARTED TO LEFT AC WITH GOOD BLOOD RETURN. IVF NS HUNG ORDERED AT 100CC/HR. DARBY CATH #16 [place] DARBY INSERTED WITH BLOOD TINGED URINE RETURNED. PATIENT PULLED LAST CATH OUT WITH BALLON INFLATED. PATIENT WITH O2-CONSTANTLY TAKING O2 OFF AND THEN STAFF REAPPLING IT. MOST OF ADMISSION PROCESS FROM OLD RECORDS. ABD IS DISTENDED BUT SOFT WITH BS+. 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 WAS [facility]. ATEEMPTED TO ORIENT PATIENT TO ROOM AND SURROUNDINGS. INSTRUCTED ON USE OF NURSE CALL LIGHT SYSTEM, TV REMOTE. SAFETY PRECAUTIONS REINFORCED. CALL LIGHT IN REACH. WILL CONT TO MONITOR.
--- NOTE | 2018-08-05 | NUR ---
PATIENT RESTING IN BED AT THIS TIME-STILL CONFUSED TO TIME. PATIENT MEDICATED FOR PAIN WITH LITTLE RELIEF PER PATIENT. PAIN IS TO LEFT THIGH AND LEFT HIP. MEDICATED WITH DILAUDID 0.5MG EARLIER WITH LITTLE RELIEF. IVF PATENT AND INFUSING AT 100CC/HR. ANTIBIOTICS GIVEN ORDERED. PATIENT ASKING FOR FOOD-REINFORCED THAT SHE IS STILL JUST ON CLEAR LIQUIDS. STATES THAT SHE IS REALYY HUNGRY. DARBY CATH IS INTACT AND DRAINING JEAN URINE. SAFETY PRECAUTIONS REINFORCED. CALL LIGHT IN REACH. WILL CONT TO MONITOR,
--- NOTE | 2018-08-05 | NUR ---
PATIENT RESTING IN BED-RESTLESS. DARBY CATH FOUND ON THE FLOOR WITH BALLON INFLATED. WHEN PATIENT ASKED WHAT HAPPENED SHE HAD NO IDEA WHAT HAPPENED. EXPLAINED THE POSSIBLE COMPLICATIONS FROM PULLING CATH OUT WITH BALLOON INFLATED. O2 VIA NASAL CANNULA REAPPLIED. IVF PATENT AND INFUSING AT 100CC/HR. SITE APPEARS HEALTHY AT THIS TIME. BED ALARM IN PLACE FOR PATIENT SAFETY. CALL LIGHT IN REACH. WILL CONT TO MONITOR.
[2018-08-05 01:39] LABS: URINE BLOOD DIPSTICK LARGE (NEGATIVE); URINE COLOR YELLOW; URINE GLUCOSE - DIPSTICK NEGATIVE (NEGATIVE); URINE KETONE TRACE mg/dL (NEGATIVE); URINE LEUK ESTERASE NEGATIVE (NEGATIVE); URINE PH 5.5 (4.5-8.0); URINE PROTEIN - DIPSTICK 100 mg/dL (NEG-TRACE); URINE SPECIFIC GRAVITY >=1.030
[2018-08-05 01:42] LABS: URINE BILIRUBIN - DIPSTICK NEGATIVE (NEGATIVE); URINE NITRITE - DIPSTICK POSITIVE (Negative)
[2018-08-05 01:50] LABS: URINE BACTERIA MODERATE hpf; URINE RBC TNTC RBC/hpf (0-5); URINE SQUAMOUS EPITHELIAL CELL FEW EPI/hpf (0-FEW)
[2018-08-05 04:09] VITALS: BP 91/52
--- NOTE | 2018-08-05 04:46 | NUR ---
PATIENT RESTING IN BED AT THIS TIME. IVF NS PATENT AND INFUSING VIA LEFT AC SITE. VS TAKEN AND RECORDED. NO C/O NAUSEA, NO VOMITTING TONIGHT. ABD SOFTLY DISTENDED WITH BS+. BED ALARM IN LACE FOR PATIENT SAFETY. CALL LIGHT IN REACH. WILL CONT TO MONITOR.
[2018-08-05 05:45] LABS: HEMATOCRIT 38.4 % (37.0-47.0); HEMOGLOBIN 11.8 g/dl (12.0-16.0); IMMATURE GRANULOCYTES 0.9 % (0.0-5.0); MEAN CELL VOLUME 104.1 fL CALC (80.0-100.0); MEAN CORPUSCULAR HGB CONC 30.7 g/L CALC (32.0-36.0); NEUT# 21.26 thou/uL (2.00-7.15); RED BLOOD COUNT 3.69 mill/uL (4.20-5.60); RED CELL DISTRI WIDTH 13.2 % (11.5-15.5)
[2018-08-05 05:53] LABS: ALBUMIN 3.7 g/dL (3.2-5.0); CREATININE 1.4 mg/dL (0.5-1.0); POTASSIUM 4.2 mmol/l (3.5-5.1); TOTAL PROTEIN 6.6 g/dL (6.3-8.2)
[2018-08-05 05:55] LABS: BILIRUBIN, TOTAL 0.7 mg/dL (0.0-1.4)
--- NOTE | 2018-08-05 06:00 | NUR ---
PATIENT RESTING IN BED-O2 REAPPLIED AT 2LPM. IVF NS PATENT AND INFUSING AT 100CC/HR VIA LEFT AC SITE. LAB GLUCOSE 57. [id number]. SKIN WARM AND DRY. AROUSABLE. CALL LIGHT IN REACH, WILL CONT TO MONITOR.
--- NOTE | 2018-08-05 07:43 | NUR ---
PT RESTING IN BED, DROWSY, EASILY AROUSED TO VERBAL STIMULI. DISCUSSED REPLACEMENT OF DARBY CATHETER, PT VERBALIZED UNDERSTANDING. #18F DARBY CATHETER INSERTED ASEPTIC TECHNIQUE BY RN, PT TOLERATED WELL, DARK JEAN URINE WITH SEDIMENT NOTED IN TUBING. BREAD DISTRIBUTOR CALLED DUE TO BLOOD GLUCOSE 57 BUT ACCUCHECK 87 CHANGED IVF TO D5 1/2 NS. CALL LIGHT IN REACH,CONTINUE TO MONITOR.
[2018-08-05 08:27] VITALS: BP 94/54
--- NOTE | 2018-08-05 09:25 | NUR ---
PT RESTING IN BED, ALERT TO PERSON AND PLACE BUT NOT TO TIME. PT DOES NOT KNOW WHY SHE IS HERE. ATTEMPTED TO REORIENT TO POC, PT STATES,"YOU ARE SO FULL OF SHIT, YOU STINK" PT STATES SHE WAS NEVER AT TCU IN [place] AND WANTS PAIN MEDICATION, INFORMED PT THAT BP TOO LOW AT THIS TIME. PT NEEDS REINFORCEMENT. BED ALARM FOR SAFETY. CALL LIGHT IN REACH,CONTINUE TO MONITOR.
--- NOTE | 2018-08-05 10:00 | NUR ---
PT UPSET, YELLING OUT STATES SHE WANTS SOMETHING TO DRINK, RE-EDUCATED ON PROCESS OF SBO AND NPO STATUS. PT STATES SHE WANTS TO LEAVE AMA, DISCUSSED WITH PT WHO CAN HELP HER AT HOME, PT STATES SHE HAS NO WAY HOME OR ANYONE TO HELP HER AND SHE CANNOT GET A HOLD OF HER S/O AT THIS TIME. CUSTOMER SERVICE SUPERVISOR NOTIFIED PT REQUESTS TO AMA. AFTER DISCUSSION WITH CUSTOMER SERVICE SUPERVISOR PT AGREED TO STAY. CALL LIGHT IN REACH,CONTINUE TO MONITOR.
--- NOTE | 2018-08-05 11:03 | NUR ---
PT CONTINUES TO C/O PAIN INFORMED OPERATING ROOM ASSISTANT OF BP AND PT C/O PAIN. INSTRUCTED TO GIVE IV BOLUS OF 250CC, DISCUSSED WITH PT, SHE AGREES IF IT WILL HELP TO GET HER PAIN MEDICATION.
[2018-08-05 11:50] VITALS: BP 104/54
--- NOTE | 2018-08-05 12:23 | NUR ---
PT GIVEN ANOTHER BOLUS OF IVF PER AND A DOSE OF DILAUDID GIVEN. PT TOLERATED WELL, RECHECKED BP AFTER BOLUS PT NOW 88/62, UX VISUAL DESIGNER NOTIFIED. DILAUDID DC'D. CONTINUE TO MONITOR. PT INFORMED OF BP AND NO PAIN MEDICATION AT THIS TIME. BED ALARM FOR SAFETY, CALL LIGHT IN REACH.
--- NOTE | 2018-08-05 13:12 | NUR ---
Med rec completed from history here at [facility]. Pt uncooperative. Significant other not answering phone. [facility] closed.
[2018-08-05 13:17] VITALS: BP 88/62
--- NOTE | 2018-08-05 13:49 | NUR ---
PT PRE MEDICATED WITH SOLUMEDROL AND BENADRYL FOR ORAL CONTRAST, PT VERBALIZED UNDERSTANDING. DISCUSSED CT, PT AGREES. CALL LIGHT IN REACH,CONTINUE TO MONITOR.
[2018-08-05] MEDS ORDERED: LISINOPRIL20 MG PO (14:45)
--- NOTE | 2018-08-05 15:15 | NUR ---
PT VERY IRRITABLE, S/O AT BEDSIDE, PO CONTRAST GIVEN PT TOLERATED WELL. REQUESTING NICOTINE PATCH, CALL LIGHT IN REACH,CONTINUE TO MONITOR.
--- NOTE | 2018-08-05 16:27 | NUR ---
PT TAKEN DOWN TO RADIOLOGY VIA STRETCHER FOR CT ACCOMPANIED BY PRINT PROJECT MANAGER. CONTINUE TO MONITOR.
[2018-08-05 16:53] VITALS: BP 120/65
--- NOTE | 2018-08-05 17:00 | NUR ---
PT RETURNED FROM CT, NO SIGNS OF DISTRESS NOTED, SPONGES FOR DRY MOUTH. PT MORE CALM AND PLEASANT. CALL LIGHT IN REACH,CONTINUE TO MONITOR.
--- NOTE | 2018-08-05 18:26 | NUR ---
CALL RECEIVED FROM , REVIEWED CT RESULTS. PT MAY HAVE CLEAR LIQUIDS. WATER PROVIDED.
--- NOTE | 2018-08-05 20:00 | NUR ---
PATIENT RESTING IN BED AT THIS TIME-AWAKE ALERT MORE COOPERATIVE TONIGHT. STILL CONFUSED TO TIME. DARBY CATH PATENT AND DRAING JEAN URINE. CATH STRAP IN PLACE. IV SITE TO LEFT AC INFILTRATED AND D/C'ED. NEW IV SITE STARTED TO RIGHT WRIST-#24 WITH GOOD BLOOD RETURN. IVF PATENT AND INFUSING AT 100CC/HR-D51/2NS. PATIENT CONT TO C/O LEFT THIGH/HIP PAIN EVEN AFTER PAIN MEDS IS AT 9/10 ON PAIN SCALE. PATIENT IS TAKING PO CLEAR LIQUIDS AT THIS TIME-NO N/V AT THIS TIME. ABD IS SOFT WITH BS+. O2 VIA NASAL CANNULA IN PLACE. SAFETY PRECAUTIONS REINFORCED. CALL LIGHT IN REACH. WILL CONT TO MONITOR.
[2018-08-05 20:20] VITALS: BP 119/55
[2018-08-06 04:05] VITALS: BP 133/74
--- NOTE | 2018-08-06 04:21 | NUR ---
PATIENT AWAKE RESTING IN BED-C/O PAIN TO LEFT THIGH/HIP. TOO EARLY AT THIS TIME AND PATIENT IS AWARE. IVF PATENT AND INFUSING VIA RIGHT WRIST IV SITE AT 100CC/HR. SITE REMAINS HEALTHY AT THIST TIME. DARBY PATENT AND DRAINING JEAN URINE. PATIENT HAS NOT SLEPT MOST OF THENIGHT. SAFETY PRECAUTIONS REINFORCED. CALL LIGHT IN REACH. WILL CONT TO MONITOR.
--- NOTE | 2018-08-06 05:15 | NUR ---
PATIENT RESTING IN BED-C/O LEFT THIGH AND HIP PAIN. 9/10 ON PAIN SCALE. PATIENT DOESN'T APPEAR IN ANY DISTRESS. MEDICTED WITH DILAUDID 0.5MG IVP ORDERED FOR PAIN. FLAGYL HUNG ORDERED VIA RIGHT WRIST IV SITE. DARBY PATENT AND DRAINING JEAN URINE. SAFETY PRECAUTIONS REINFORCED. CALL LIGHT IN REACH. WILL CONT TO MONITOR.
[2018-08-06 05:31] LABS: IMMATURE GRANULOCYTES 2.1 % (0.0-5.0); MEAN CORPUSCULAR HGB 31.5 pG CALC (26.0-32.0); MEAN CORPUSCULAR HGB CONC 31.5 g/L CALC (32.0-36.0); NEUT# 11.01 thou/uL (2.00-7.15); RED BLOOD COUNT 3.11 mill/uL (4.20-5.60); RED CELL DISTRI WIDTH 13.1 % (11.5-15.5)
[2018-08-06 06:07] LABS: ALKALINE PHOSPHATASE 121 u/l (38-126); ANION GAP 12 (6-22 (CALC)); BUN 30 mg/dL (8-23); BUN/CREATININE RATIO 41 (12-20 (CALC)); CARBON DIOXIDE 21 mmol/l (22-30); CHLORIDE 107 mmol/l (95-108); CREATININE 0.7 mg/dL (0.5-1.0); GFR > 60 ML/MIN (>=60 (CALC)); GFR FOR AFR.AMER. > 60 ML/MIN (>=60 (CALC)); POTASSIUM 4.6 mmol/l (3.5-5.1); SGOT/AST 26 u/l (9-36); SODIUM 136 mmol/l (137-146); TOTAL PROTEIN 5.8 g/dL (6.3-8.2)
[2018-08-06 06:08] LABS: BILIRUBIN, TOTAL 0.4 mg/dL (0.0-1.4)
[2018-08-06 06:12] LABS: HEMATOCRIT 31.1 % (37.0-47.0); HEMOGLOBIN 9.8 g/dl (12.0-16.0)
[2018-08-06 08:06] VITALS: BP 120/76
--- NOTE | 2018-08-06 08:16 | NUR ---
PT SITTING UP IN BED, A/O; ASSESSMENT COMPLETED AT THIS TIME; RESP EVEN AND UNLABORED ON ROOM AIR, PT PULLING OUT 02; IVF D5-1/2 @100CC/HR; SITE APPEARS HEALTHY; DARBY DRAINING TO GRAVITY; C/O OF NO PAIN; MEDICATED PER EMAR; CALL WHARTON IN REACH; SAFETY PRECAUTION REINFORCE; WILL CONTINUE TO MONITOR.
--- NOTE | 2018-08-06 11:17 | NUR ---
PT SITTING UP IN BED, SPOUSE AT BEDSIDE; MEDICATED WITH DILAUDID PAIN 10/; SPOUSE STATED PT HAD MOD BM ON BEDPAN; IVF INFUSING WITHOUT DIFFICULTY; DARBY DRAINING TO GRAVITY, LEG STRAP SECURE; CALL WHARTON IN REACH;. WILL CONTINUE TO MONITOR.
--- NOTE | 2018-08-06 12:15 | NUR ---
PT SITTING UP IN BED EATING LUNCH; RESP EVEN AND UNLABORED; IVF INFUSING WITHOUT DIFFICULTY; NO S/S OF DISTRESS NOTED;
--- NOTE | 2018-08-06 13:55 | NUR ---
DR NEUMANN AT BEDSIDE TO DISCUSS POC; ORDER TO STOP IVF
[2018-08-06 15:00] VITALS: BP 110/53
--- NOTE | 2018-08-06 15:34 | NUR ---
IV #24G IV INFILTRATE; TWO ATTEMPTS MADE BY ER STAFF TO START NEW IV SITE, BUT FAILED; DR NEUMANN AWARE.
--- NOTE | 2018-08-06 17:46 | NUR ---
PT READJUSTED IN BED, HOP ELEVATED NOW EATING SUPPER, MEDICATED WITH PO DILAUDID 11/03; DARBY DRAINING TO GRAVITY, CLEAR, JEAN URINE; CALL WHARTON IN REACH. WILL CONTINUE TO MONITOR.
[2018-08-06 19:00] VITALS: BP 125/72
--- NOTE | 2018-08-06 20:00 | NUR ---
PATIENT RESTING IN BED AT THIS TIME-ANGRY, AGITATED AND WANTS TO GO HOME. PATIENT STATES THAT SHE JUST WANTS TO GO HOME AND BE WITH PATSY. TIRED OF BEING IN THE HOSPITAL AND DOES'NT WANT TO GO TO [facility]HE[place]. ATTEMPTED TO REASON WITH PATIENT WITH LITTLE SUCCESS. PATIENT ALLOWED TO VENT. DARBY CATH IN PLACE AND DRAINING JEAN URINE. CATH STRAP IN PLACE AT THIS TIME. NO IV SITE AT THIS TIME. SAFETY PRECAUTIONS REINFORCED. CALL LIGHT IN REACH. WILL CONT TO MONITOR.
--- NOTE | 2018-08-06 21:00 | NUR ---
BS TONIGHT IS 146-NO COVERAGE PER PROTOCOL. HS SNACK PROVIDED. CALL LIGHT IN REACH. WILL CONT TO MONITOR.
--- NOTE | 2018-08-07 01:00 | NUR ---
PATIENT APPEARS SLEEPING AT THIS TIME WITH HOB ELEVATED. RESP ARE EVEN AND UNNLABORED AT THIS TIME. CALL LIGHT IN REACH. WILL CONT TO MONITOR.
--- NOTE | 2018-08-07 04:20 | NUR ---
PATIENT APPEARS SLEEPING AT THIS TIME WITH EYES CLOSED. DARBY PATENT AND DRAINING JEAN URINE. CALL LIGHT IN REACH. WILL CONT TO MONITOR.
[2018-08-07 04:40] VITALS: BP 131/70
[2018-08-07 08:30] VITALS: BP 114/65
--- NOTE | 2018-08-07 08:30 | NUR ---
ASSESSMENT IS COMPLETED: HR IS REG,PULSES ARE STRONG X4, ABD IS SOFT WITH ACTIVE BS. BREATH SOUNDS ARE CLEAR, BILATERALLY. NO C/O SOB, HR IS REG,PULSES ARE STRONG ON RADIAL AND R PEDAL. DARBY DRAINING YELLOW URINE. CONTINUE TO OBSERVE AND MONITOR.
[2018-08-07 11:00] VITALS: BP 100/50
--- NOTE | 2018-08-07 12:15 | NUR ---
GAVE PAIN MEDICATION AT 1230, HAS BEEN RESTING WITH EYES CLOSED
--- NOTE | 2018-08-07 12:33 | NUR ---
significant other called to check on pt.
--- NOTE | 2018-08-07 13:02 | NUR ---
DR DEGROOT IN TO VISIT WITH PT
--- NOTE | 2018-08-07 15:07 | NUR ---
Miss Martinez was supine upon entering room with head rest upright 45 deg angle. Pt. agreed to participate with therapy exercises. Pt. stated she has been in wheel chair for 17 years and her left hip is very painful. Pt. executed 10 SLR, last motion pt. held for 10 sec, having trouble doing so. P. executed 5 heel slides. Educated pt. on importance of bed mobility to roll laterally to prevent pressure ulcers. Pt. performed 3 sets of bed mobility and towards end of treatment pt. scooted superiorly with help of bed rail. Tray table and call hurd placed within pt. reach. Pt. was in supine with headrest elevated as exiting room. AM pac six score unchanged.
[2018-08-07 15:44] VITALS: BP 140/72
--- NOTE | 2018-08-07 16:20 | NUR ---
PT IS RELAXING IN BED WITH NO DISTRESS NOTED IV SITE IS FREE FROM REDNESS OR EDEMA.
[2018-08-07 19:00] VITALS: BP 126/66
--- NOTE | 2018-08-07 19:30 | NUR ---
PATIENT RESTING IN BED AT THIS TIME-ASKING FOR PAIN MEDS. PATIENT IS AWAKE ALERT ANDORIENTED TO PERSON AND PLACE. PATIENT WAS TOLD THAT IT IS TOO EARLY FOR PAIN MEDS AT THIS TIME. PATIENT FOR TRANSFER TO [facility]. DARBY CATH PATENT AND DRAINING JEAN URINE. CATH STRAP IN PLACE TO RIGHT THIGH. SAFETY PRECAUTIONS REINFORCED. CALL LIGHT IN REACH. WILL CONT TO MONITOR.
--- NOTE | 2018-08-07 20:41 | NUR ---
2014-PATIENT WAS MEDICATED WITH HS MEDS AND DILAUDID 2MG PO FOR PRE-TRANSPORT MEDICATION FOR PAIN. PATIENT MAX ASSIST TO STRETCHER BY MEDICAL TRANSPORT PERSONEL. PACKET GIVEN TO TRANSPORT PERSONEL. PATIENT BEING TRANSFERRED TO [facility] VIA STRETCHER WITH [facility] PERSONEL. 2030-REPORT CALLED TO DUDLEY AT [phone]
== END 2018-08-07 20:20 ==
LOC: MS2 18:42
PROVIDERS: Nurse Practitioner Family; ADMIT Internal Medicine; ATTEND Internal Medicine
DX: K56.7 Ileus, unspecified (principal); N17.9 Acute kidney failure, unspecified; J43.9 Emphysema, unspecified; I10 Essential (primary) hypertension; E78.5 Hyperlipidemia, unspecified; I25.10 Atherosclerotic heart disease of native coronary artery without angina pectoris; E11.40 Type 2 diabetes mellitus with diabetic neuropathy, unspecified; E03.9 Hypothyroidism, unspecified; K43.2 Incisional hernia without obstruction or gangrene; D72.829 Elevated white blood cell count, unspecified; S72.142D Displaced intertrochanteric fracture of left femur, subsequent encounter for closed fracture with routine healing; F17.200 Nicotine dependence, unspecified, uncomplicated; W19.XXXD Unspecified fall, subsequent encounter; Z89.612 Acquired absence of left leg above knee; Z86.14 Personal history of Methicillin resistant Staphylococcus aureus infection

== ENCOUNTER 2018-10-10 11:34 | Emergency (ER) | payer MEDICARE, MEDICAID ==
[~2018-10-10] VITALS: Ht 167.6 cm; Wt 73.2 kg
[~2018-10-10 11:34] MED LIST changes: +LISINOPRIL20 MG PO
[2018-10-10 12:46] LABS: BARBITURATES NEGATIVE (NEGATIVE); COCAINE NEGATIVE (NEGATIVE); METHADONE NEGATIVE (NEGATIVE); OXCYCODONE NEGATIVE (NEGATIVE); TETRAHYDROCANNABIONOL NEGATIVE (NEGATIVE); TRICYLIC ANTIDEPRESSANTS NEGATIVE (NEGATIVE)
[2018-10-10 12:48] LABS: HEMATOCRIT 37.9 % (37.0-47.0); HEMOGLOBIN 11.8 g/dl (12.0-16.0); IMMATURE GRANULOCYTES 0.6 % (0.0-5.0); MEAN CELL VOLUME 97.9 fL CALC (80.0-100.0); MEAN CORPUSCULAR HGB 30.5 pG CALC (26.0-32.0); MEAN CORPUSCULAR HGB CONC 31.1 g/L CALC (32.0-36.0); NEUT# 7.4 thou/uL (2.00-7.15); RED BLOOD COUNT 3.87 mill/uL (4.20-5.60); RED CELL DISTRI WIDTH 13.5 % (11.5-15.5)
[2018-10-10 13:11] LABS: ANION GAP 15 (6-22 (CALC)); BILIRUBIN, TOTAL 0.4 mg/dL (0.0-1.4); BUN 15 mg/dL (8-23); BUN/CREATININE RATIO 24 (12-20 (CALC)); CARBON DIOXIDE 21 mmol/l (22-30); CHLORIDE 109 mmol/l (95-108); CREATININE 0.6 mg/dL (0.5-1.0); GFR > 60 ML/MIN (>=60 (CALC)); GFR FOR AFR.AMER. > 60 ML/MIN (>=60 (CALC)); LIPASE 26 u/l (23-300); POTASSIUM 4.6 mmol/l (3.5-5.1); SGOT/AST 23 u/l (9-36); SODIUM 141 mmol/l (137-146)
[2018-10-10 13:22] LABS: ALKALINE PHOSPHATASE 184 u/l (38-126)
[2018-10-10] MEDS ORDERED: GABAPENTIN100 MG PO (14:50)
[2018-10-10] MEDS ORDERED: BACLOFEN10 MG PO (14:51)
[2018-10-10 16:52] VITALS: BP 138/66
== END 2018-10-10 16:52 | disposition home or self-care (01) ==
LOC: ED 11:34
PROVIDERS: Emergency Medicine
DX: R07.89 Other chest pain (principal); R06.02 Shortness of breath; I10 Essential (primary) hypertension; F17.210 Nicotine dependence, cigarettes, uncomplicated

== ENCOUNTER 2018-10-18 15:22 | Emergency (ER) | payer MEDICARE, MEDICAID ==
[~2018-10-18] VITALS: Ht 167.6 cm; Wt 73.2 kg
[~2018-10-18 15:22] MED LIST changes: +BACLOFEN10 MG PO; +GABAPENTIN100 MG PO
[2018-10-18 16:53] LABS: HEMATOCRIT 37.2 % (37.0-47.0); HEMOGLOBIN 11.8 g/dl (12.0-16.0); IMMATURE GRANULOCYTES 0.8 % (0.0-5.0); MEAN CELL VOLUME 96.6 fL CALC (80.0-100.0); MEAN CORPUSCULAR HGB 30.6 pG CALC (26.0-32.0); MEAN CORPUSCULAR HGB CONC 31.7 g/L CALC (32.0-36.0); NEUT# 12.48 thou/uL (2.00-7.15); RED BLOOD COUNT 3.85 mill/uL (4.20-5.60); RED CELL DISTRI WIDTH 13.9 % (11.5-15.5)
[2018-10-18 17:16] LABS: ANION GAP 16 (6-22 (CALC)); BUN 15 mg/dL (8-23); BUN/CREATININE RATIO 25 (12-20 (CALC)); CHLORIDE 103 mmol/l (95-108); CREATININE 0.6 mg/dL (0.5-1.0); GFR > 60 ML/MIN (>=60 (CALC)); GFR FOR AFR.AMER. > 60 ML/MIN (>=60 (CALC)); POTASSIUM 4.4 mmol/l (3.5-5.1); SODIUM 141 mmol/l (137-146)
[2018-10-18 17:19] LABS: CARBON DIOXIDE 26 mmol/l (22-30)
[2018-10-18 17:51] LABS: URINE BILIRUBIN - DIPSTICK NEGATIVE (NEGATIVE); URINE BLOOD DIPSTICK NEGATIVE (NEGATIVE); URINE COLOR YELLOW; URINE GLUCOSE - DIPSTICK NEGATIVE (NEGATIVE); URINE KETONE NEGATIVE (NEGATIVE); URINE LEUK ESTERASE NEGATIVE (NEGATIVE); URINE NITRITE - DIPSTICK NEGATIVE (Negative); URINE PH 5.5 (4.5-8.0); URINE PROTEIN - DIPSTICK TRACE mg/dL (NEG-TRACE); URINE SPECIFIC GRAVITY 1.025; URINE UROBILINOGEN - DIPSTICK 0.2 E.U./dL (0.2)
[2018-10-18 19:00] VITALS: BP 120/68
== END 2018-10-18 19:00 | disposition home or self-care (01) ==
LOC: ED 15:22
PROVIDERS: Family Medicine
DX: R56.9 Unspecified convulsions (principal); E11.9 Type 2 diabetes mellitus without complications; F17.210 Nicotine dependence, cigarettes, uncomplicated; Z86.73 Personal history of transient ischemic attack (TIA), and cerebral infarction without residual deficits; Z89.612 Acquired absence of left leg above knee

== ENCOUNTER 2018-11-14 12:05 | Emergency (ER) | payer MEDICARE, MEDICAID ==
[~2018-11-14] VITALS: Ht 167.6 cm; Wt 74.5 kg
[~2018-11-14 12:05] MED LIST changes: -LISINOPRIL20 MG PO; +LISINOPRIL40 MG PO
[2018-11-14 13:19] VITALS: BP 129/71
[2018-11-14] MEDS ORDERED: LIPITOR20 M1 PO (13:49)
[2018-11-14] MEDS ORDERED: ROWEEPRA500 MG PO (13:51)
[2018-11-14] MEDS ORDERED: TOPROL XL25 M1 PO (13:54)
== END 2018-11-14 14:05 | disposition home or self-care (01) ==
LOC: ED 12:05
DX: M25.552 Pain in left hip (principal); T87.89 Other complications of amputation stump; E11.9 Type 2 diabetes mellitus without complications; I10 Essential (primary) hypertension; F17.210 Nicotine dependence, cigarettes, uncomplicated; Y83.5 Amputation of limb(s) as the cause of abnormal reaction of the patient, or of later complication, without mention of misadventure at the time of the procedure; Z86.73 Personal history of transient ischemic attack (TIA), and cerebral infarction without residual deficits; Z89.612 Acquired absence of left leg above knee; Z79.84 Long term (current) use of oral hypoglycemic drugs

== ENCOUNTER 2020-02-04 16:51 | Emergency (ER) | payer MEDICARE, MEDICAID ==
[~2020-02-04] VITALS: Ht 167.6 cm; Wt 75.0 kg
[~2020-02-04 16:51] MED LIST changes: +LIPITOR20 M1 PO; +ROWEEPRA500 MG PO; +TOPROL XL25 M1 PO
[2020-02-04] MEDS ORDERED: LEVOTHYROXIN75 MCG PO (17:29)
[2020-02-04] MEDS ORDERED: METOPROL TAR25 MG PO (17:29)
[2020-02-04] MEDS ORDERED: FLUOXETINE20 MG PO (17:29)
[2020-02-04 18:04] LABS: HEMATOCRIT 39.2 % (37.0-47.0); HEMOGLOBIN 12.3 g/dl (12.0-16.0); IMMATURE GRANULOCYTES 0.3 % (0.0-5.0); MEAN CORPUSCULAR HGB 30.4 pG CALC (26.0-32.0); MEAN CORPUSCULAR HGB CONC 31.4 g/dL CAL (32.0-36.0); NEUT# 8.58 thou/uL (2.00-7.15); RED BLOOD COUNT 4.04 mill/uL (4.20-5.60); RED CELL DISTRI WIDTH 13.1 % (11.5-15.5)
[2020-02-04 18:08] LABS: GFR 55 ML/MIN (>=60 (CALC)); GFR FOR AFR.AMER. > 60 ML/MIN (>=60 (CALC))
[2020-02-04 18:34] LABS: ALKALINE PHOSPHATASE 89 u/l (38-126); ANION GAP 11 (6-22 (CALC)); BILIRUBIN, TOTAL 0.3 mg/dL (0.0-1.4); BUN 18 mg/dL (8-23); BUN/CREATININE RATIO 19 (12-20 (CALC)); CARBON DIOXIDE 26 mmol/l (22-30); CHLORIDE 107 mmol/l (95-108); CREATININE 0.9 mg/dL (0.5-1.0); GFR > 60 ML/MIN (>=60 (CALC)); GFR FOR AFR.AMER. > 60 ML/MIN (>=60 (CALC)); SGOT/AST 21 u/l (9-36); SODIUM 140 mmol/l (137-146); TOTAL PROTEIN 7.2 g/dL (6.3-8.2)
[2020-02-04 20:58] LABS: URINE BILIRUBIN - DIPSTICK NEGATIVE (NEGATIVE); URINE BLOOD DIPSTICK TRACE-LYSED (NEGATIVE); URINE COLOR YELLOW; URINE GLUCOSE - DIPSTICK NEGATIVE (NEGATIVE); URINE KETONE NEGATIVE (NEGATIVE); URINE PROTEIN - DIPSTICK NEGATIVE (NEG-TRACE); URINE SPECIFIC GRAVITY 1.015; URINE UROBILINOGEN - DIPSTICK 0.2 E.U./dL (0.2)
[2020-02-04 21:00] LABS: URINE LEUK ESTERASE SMALL (NEGATIVE); URINE NITRITE - DIPSTICK POSITIVE (Negative)
[2020-02-04 21:07] LABS: URINE BACTERIA MODERATE hpf; URINE SQUAMOUS EPITHELIAL CELL FEW EPI/hpf (0-FEW)
[2020-02-04 21:27] VITALS: BP 185/81
== END 2020-02-04 21:27 | disposition short-term general hospital (02) ==
LOC: ED 16:51
PROVIDERS: Family Medicine
DX: K92.1 Melena (principal); R10.31 Right lower quadrant pain; R10.32 Left lower quadrant pain; R10.12 Left upper quadrant pain; R82.71 Bacteriuria; I10 Essential (primary) hypertension; E11.9 Type 2 diabetes mellitus without complications; F17.210 Nicotine dependence, cigarettes, uncomplicated; Z89.612 Acquired absence of left leg above knee; Z86.73 Personal history of transient ischemic attack (TIA), and cerebral infarction without residual deficits; Z79.84 Long term (current) use of oral hypoglycemic drugs

== ENCOUNTER 2020-03-02 02:49 | Inpatient (IN) | payer MEDICARE ==
[2020-03-02] VITALS (16 sets, daily range): BP systolic 80–150; BP diastolic 32–66
[~2020-03-02] VITALS: Ht 167.6 cm; Wt 100.0 kg
[~2020-03-02 02:49] MED LIST changes: +FLUOXETINE20 MG PO; +LEVOTHYROXIN75 MCG PO; +METOPROL TAR25 MG PO
[2020-03-02 03:48] LABS: HEMATOCRIT 43.9 % (37.0-47.0); HEMOGLOBIN 13.7 g/dl (12.0-16.0); IMMATURE GRANULOCYTES 0.3 % (0.0-5.0); MEAN CELL VOLUME 99.3 fL CALC (80.0-100.0); MEAN CORPUSCULAR HGB CONC 31.2 g/dL CAL (32.0-36.0); NEUT# 13.35 thou/uL (2.00-7.15); RED BLOOD COUNT 4.42 mill/uL (4.20-5.60); RED CELL DISTRI WIDTH 12.9 % (11.5-15.5)
[2020-03-02 03:52] LABS: URINE BLOOD DIPSTICK NEGATIVE (NEGATIVE); URINE COLOR YELLOW; URINE GLUCOSE - DIPSTICK NEGATIVE (NEGATIVE); URINE KETONE NEGATIVE (NEGATIVE); URINE LEUK ESTERASE NEGATIVE (NEGATIVE); URINE NITRITE - DIPSTICK NEGATIVE (Negative); URINE PROTEIN - DIPSTICK NEGATIVE (NEG-TRACE); URINE SPECIFIC GRAVITY >=1.030; URINE UROBILINOGEN - DIPSTICK 0.2 E.U./dL (0.2)
[2020-03-02 04:15] LABS: PROTHROMBIN TIME 10.1 SECONDS (9.0-12.5)
[2020-03-02 04:16] LABS: URINE BILIRUBIN - DIPSTICK NEGATIVE (NEGATIVE)
[2020-03-02 04:19] LABS: ALBUMIN 3.9 g/dL (3.2-5.0); ALKALINE PHOSPHATASE 121 u/l (38-126); ANION GAP 14 (6-22 (CALC)); BILIRUBIN, TOTAL 0.4 mg/dL (0.0-1.4); BUN 24 mg/dL (8-23); BUN/CREATININE RATIO 22 (12-20 (CALC)); CARBON DIOXIDE 22 mmol/l (22-30); CHLORIDE 104 mmol/l (95-108); CREATININE 1.1 mg/dL (0.5-1.0); ETHYL ALCOHOL 0 mg/dl (0-30); GFR 49 ML/MIN (>=60 (CALC)); GFR FOR AFR.AMER. 59 ML/MIN (>=60 (CALC)); POTASSIUM 4.2 mmol/l (3.5-5.1); SGOT/AST 32 u/l (9-36); SODIUM 136 mmol/l (137-146); TOTAL PROTEIN 7.3 g/dL (6.3-8.2)
[2020-03-02 04:30] LABS: MYOGLOBIN 240 ng/mL (0 - 62)
[2020-03-02] MEDS ORDERED: LIPITOR20 M1 PO (07:25)
[2020-03-02] MEDS ORDERED: FLUOXETINE20 MG PO (07:25)
[2020-03-02] MEDS ORDERED: LEVOTHYROXIN75 MCG PO (07:25)
[2020-03-02] MEDS ORDERED: BACLOFEN10 MG PO (07:26)
[2020-03-02] MEDS ORDERED: KEPPRA500 M2 PO (07:27)
[2020-03-02] MEDS ORDERED: GABAPENTIN100 MG PO (07:27)
[2020-03-02] MEDS ORDERED: GLIPIZIDE ER2.5 MG PO (07:27)
[2020-03-02] MEDS ORDERED: ZESTRIL40 MG PO (07:27)
[2020-03-02] MEDS ORDERED: TOPROL XL25 M1 PO (07:28)
[2020-03-03] VITALS (15 sets, daily range): BP systolic 106–165; BP diastolic 45–82
[2020-03-03 05:13] LABS: MEAN CELL VOLUME 97.1 fL CALC (80.0-100.0); MEAN CORPUSCULAR HGB 30.8 pG CALC (26.0-32.0); MEAN CORPUSCULAR HGB CONC 31.7 g/dL CAL (32.0-36.0); RED BLOOD COUNT 3.41 mill/uL (4.20-5.60); RED CELL DISTRI WIDTH 12.8 % (11.5-15.5)
[2020-03-03 05:45] LABS: HEMATOCRIT 33.1 % (37.0-47.0); HEMOGLOBIN 10.5 g/dl (12.0-16.0)
[2020-03-03 06:02] LABS: ALKALINE PHOSPHATASE 85 u/l (38-126); ANION GAP 8 (6-22 (CALC)); BUN 14 mg/dL (8-23); BUN/CREATININE RATIO 19 (12-20 (CALC)); CARBON DIOXIDE 23 mmol/l (22-30); CHLORIDE 114 mmol/l (95-108); CREATININE 0.7 mg/dL (0.5-1.0); GFR > 60 ML/MIN (>=60 (CALC)); GFR FOR AFR.AMER. > 60 ML/MIN (>=60 (CALC)); MAGNESIUM 2.1 mg/dL (1.6-2.3); POTASSIUM 4.4 mmol/l (3.5-5.1); SGOT/AST 20 u/l (9-36); SODIUM 140 mmol/l (137-146)
[2020-03-03 06:15] LABS: ALBUMIN 2.9 g/dL (3.2-5.0); BILIRUBIN, TOTAL 0.2 mg/dL (0.0-1.4); TOTAL PROTEIN 5.4 g/dL (6.3-8.2)
[2020-03-04 04:00] VITALS: BP 149/80
[2020-03-04 05:56] LABS: HEMATOCRIT 32.2 % (37.0-47.0); HEMOGLOBIN 10.4 g/dl (12.0-16.0); MEAN CORPUSCULAR HGB 31.3 pG CALC (26.0-32.0); MEAN CORPUSCULAR HGB CONC 32.3 g/dL CAL (32.0-36.0); RED BLOOD COUNT 3.32 mill/uL (4.20-5.60)
[2020-03-04 06:19] LABS: ANION GAP 8 (6-22 (CALC)); BUN 10 mg/dL (8-23); BUN/CREATININE RATIO 15 (12-20 (CALC)); CARBON DIOXIDE 23 mmol/l (22-30); CHLORIDE 114 mmol/l (95-108); CREATININE 0.7 mg/dL (0.5-1.0); GFR > 60 ML/MIN (>=60 (CALC)); GFR FOR AFR.AMER. > 60 ML/MIN (>=60 (CALC)); MAGNESIUM 1.8 mg/dL (1.6-2.3); POTASSIUM 3.7 mmol/l (3.5-5.1); SODIUM 142 mmol/l (137-146)
[2020-03-04 08:00] VITALS: BP 169/56
[2020-03-04 15:30] VITALS: BP 152/75
[2020-03-04 18:21] VITALS: BP 154/71
[2020-03-05 05:00] VITALS: BP 145/70
[2020-03-05 05:41] LABS: HEMATOCRIT 33.7 % (37.0-47.0); HEMOGLOBIN 10.5 g/dl (12.0-16.0); IMMATURE GRANULOCYTES 0.4 % (0.0-5.0); MEAN CELL VOLUME 97.1 fL CALC (80.0-100.0); MEAN CORPUSCULAR HGB 30.3 pG CALC (26.0-32.0); MEAN CORPUSCULAR HGB CONC 31.2 g/dL CAL (32.0-36.0); NEUT# 7.53 thou/uL (2.00-7.15); RED BLOOD COUNT 3.47 mill/uL (4.20-5.60); RED CELL DISTRI WIDTH 13.2 % (11.5-15.5)
[2020-03-05 06:10] LABS: ALBUMIN 2.7 g/dL (3.2-5.0); ALKALINE PHOSPHATASE 65 u/l (38-126); ANION GAP 8 (6-22 (CALC)); BUN 5 mg/dL (8-23); BUN/CREATININE RATIO 8 (12-20 (CALC)); CARBON DIOXIDE 26 mmol/l (22-30); CHLORIDE 111 mmol/l (95-108); CREATININE 0.6 mg/dL (0.5-1.0); GFR > 60 ML/MIN (>=60 (CALC)); GFR FOR AFR.AMER. > 60 ML/MIN (>=60 (CALC)); POTASSIUM 3.6 mmol/l (3.5-5.1); SGOT/AST 22 u/l (9-36); SODIUM 142 mmol/l (137-146); TOTAL PROTEIN 5.2 g/dL (6.3-8.2)
[2020-03-05 06:24] LABS: BILIRUBIN, TOTAL 0.4 mg/dL (0.0-1.4)
[2020-03-05 08:00] VITALS: BP 149/73
[2020-03-05] MEDS ORDERED: (None)125 MG PO (11:20)
[2020-03-05] MEDS ORDERED: HYDROCO/APAP1 TA9 PO (11:24)
== END 2020-03-05 15:20 | disposition home or self-care (01) | DRG 917 ==
LOC: ED 02:49 → ED-I 09:30 → ED 09:50 → ICU 09:51 → MS2 21:18
PROVIDERS: Family Medicine; Nurse Practitioner; ADMIT Internal Medicine; ATTEND Internal Medicine
DX: T40.2X1A Poisoning by other opioids, accidental (unintentional), initial encounter (principal); J18.9 Pneumonia, unspecified organism; A04.72 Enterocolitis due to Clostridium difficile, not specified as recurrent; R41.0 Disorientation, unspecified; I25.10 Atherosclerotic heart disease of native coronary artery without angina pectoris; E11.40 Type 2 diabetes mellitus with diabetic neuropathy, unspecified; J43.9 Emphysema, unspecified; I10 Essential (primary) hypertension; E78.5 Hyperlipidemia, unspecified; E03.9 Hypothyroidism, unspecified; K43.9 Ventral hernia without obstruction or gangrene; K57.30 Diverticulosis of large intestine without perforation or abscess without bleeding; F17.210 Nicotine dependence, cigarettes, uncomplicated; Z20.828 Contact with and (suspected) exposure to other viral communicable diseases; Z79.84 Long term (current) use of oral hypoglycemic drugs; Z79.899 Other long term (current) drug therapy; Z88.0 Allergy status to penicillin; Z88.1 Allergy status to other antibiotic agents; Z88.5 Allergy status to narcotic agent; Z88.6 Allergy status to analgesic agent; Z91.041 Radiographic dye allergy status; Z88.8 Allergy status to other drugs, medicaments and biological substances; Z89.612 Acquired absence of left leg above knee; Y92.019 Unspecified place in single-family (private) house as the place of occurrence of the external cause
CPT/HCPCS: J1650; Q9967

== ENCOUNTER 2020-03-06 09:43 | Emergency (ER) | payer MEDICARE ==
[~2020-03-06] VITALS: Ht 167.6 cm; Wt 76.0 kg
[~2020-03-06 09:43] MED LIST changes: +(None)125 MG PO; +KEPPRA500 M2 PO; +ZESTRIL40 MG PO
[2020-03-06 12:04] LABS: HEMATOCRIT 38.5 % (37.0-47.0); HEMOGLOBIN 12.2 g/dl (12.0-16.0); IMMATURE GRANULOCYTES 0.5 % (0.0-5.0); MEAN CELL VOLUME 96.3 fL CALC (80.0-100.0); MEAN CORPUSCULAR HGB 30.5 pG CALC (26.0-32.0); MEAN CORPUSCULAR HGB CONC 31.7 g/dL CAL (32.0-36.0); NEUT# 12.37 thou/uL (2.00-7.15); RED CELL DISTRI WIDTH 13.2 % (11.5-15.5)
[2020-03-06 12:13] LABS: URINE BILIRUBIN - DIPSTICK NEGATIVE (NEGATIVE); URINE BLOOD DIPSTICK SMALL (NEGATIVE); URINE COLOR YELLOW; URINE GLUCOSE - DIPSTICK NEGATIVE (NEGATIVE); URINE KETONE 40 mg/dL (NEGATIVE); URINE LEUK ESTERASE TRACE (NEGATIVE); URINE NITRITE - DIPSTICK NEGATIVE (Negative); URINE PROTEIN - DIPSTICK NEGATIVE (NEG-TRACE); URINE UROBILINOGEN - DIPSTICK 0.2 E.U./dL (0.2)
[2020-03-06 12:16] LABS: URINE EPITHELIAL CELLS FEW EPI/hpf (0-FEW); URINE WBC 0-2 WBC/hpf (0-5)
[2020-03-06 12:34] LABS: ACT PARTIAL THROMBO TIME 24.8 SECONDS (20.0-32.5); INTERNATIONAL NORMALIZED RATIO 1.2 RATIO (0.7-1.3); PROTHROMBIN TIME 11.7 SECONDS (9.0-12.5)
[2020-03-06 12:43] LABS: ALKALINE PHOSPHATASE 92 u/l (38-126); ANION GAP 11 (6-22 (CALC)); BILIRUBIN, TOTAL 0.4 mg/dL (0.0-1.4); BUN 6 mg/dL (8-23); BUN/CREATININE RATIO 11 (12-20 (CALC)); CARBON DIOXIDE 29 mmol/l (22-30); CHLORIDE 105 mmol/l (95-108); CREATININE 0.6 mg/dL (0.5-1.0); GFR > 60 ML/MIN (>=60 (CALC)); GFR FOR AFR.AMER. > 60 ML/MIN (>=60 (CALC)); LIPASE 39 u/l (23-300); POTASSIUM 3.2 mmol/l (3.5-5.1); SODIUM 142 mmol/l (137-146)
[2020-03-06 12:52] LABS: ALBUMIN 3.6 g/dL (3.2-5.0); SGOT/AST 44 u/l (9-36); TOTAL PROTEIN 6.6 g/dL (6.3-8.2)
[2020-03-06 14:40] VITALS: BP 148/83
== END 2020-03-06 14:40 | disposition short-term general hospital (02) ==
LOC: ED 09:43
DX: I21.4 Non-ST elevation (NSTEMI) myocardial infarction (principal); I10 Essential (primary) hypertension; I25.10 Atherosclerotic heart disease of native coronary artery without angina pectoris; J44.9 Chronic obstructive pulmonary disease, unspecified; E11.9 Type 2 diabetes mellitus without complications; A04.72 Enterocolitis due to Clostridium difficile, not specified as recurrent; I25.2 Old myocardial infarction; F17.200 Nicotine dependence, unspecified, uncomplicated; Z86.73 Personal history of transient ischemic attack (TIA), and cerebral infarction without residual deficits; Z89.612 Acquired absence of left leg above knee; Z99.81 Dependence on supplemental oxygen; Z79.84 Long term (current) use of oral hypoglycemic drugs; Z20.828 Contact with and (suspected) exposure to other viral communicable diseases
CPT/HCPCS: J1644

== ENCOUNTER 2020-04-14 13:40 | Inpatient (IN) | payer MEDICARE ==
[~2020-04-14] VITALS: Ht 152.4 cm; Wt 67.0 kg
--- NOTE | 2020-04-14 13:40 | NUR ---
PT ARRIVED BY EMS STABLE AND IN NO DISTRESS. PT MENTAL STATUS IS ALTERED AND CANNOT ANSWER MANY BASIC QUESTIONS. PT STARES OFF BLANKLY AFTER EVERY QUESTION. SHE CAN RESPOND TO VERBAL STIMULI.
[2020-04-14 14:07] LABS: GFR > 60 ML/MIN (>=60 (CALC)); GFR FOR AFR.AMER. > 60 ML/MIN (>=60 (CALC))
[2020-04-14 14:19] LABS: HEMATOCRIT 38.1 % (37.0-47.0); IMMATURE GRANULOCYTES 0.4 % (0.0-5.0); MEAN CELL VOLUME 96.7 fL CALC (80.0-100.0); MEAN CORPUSCULAR HGB 30.5 pG CALC (26.0-32.0); MEAN CORPUSCULAR HGB CONC 31.5 g/dL CAL (32.0-36.0); NEUT# 13.49 thou/uL (2.00-7.15); RED BLOOD COUNT 3.94 mill/uL (4.20-5.60); RED CELL DISTRI WIDTH 13.2 % (11.5-15.5)
--- NOTE | 2020-04-14 14:20 | NUR ---
CT SCANNED PEFORMED AND TELESTROKE WITH MD COMPLETED, PT DID NOT HAVE ANY DISTRESS AT THIS TIME.
[2020-04-14 14:32] LABS: ACT PARTIAL THROMBO TIME 24.4 SECONDS (20.0-32.5); PROTHROMBIN TIME 10.3 SECONDS (9.0-12.5)
[2020-04-14] MEDS ORDERED: GABAPENTIN100 MG PO (14:49)
[2020-04-14] MEDS ORDERED: BACLOFEN10 MG PO (14:49)
[2020-04-14] MEDS ORDERED: LIPITOR20 M1 PO (14:49)
[2020-04-14] MEDS ORDERED: GLIPIZIDE ER2.5 MG PO (14:49)
[2020-04-14 14:50] LABS: ALBUMIN 3.5 g/dL (3.2-5.0); BILIRUBIN, TOTAL 0.4 mg/dL (0.0-1.4); BUN 10 mg/dL (8-23); BUN/CREATININE RATIO 15 (12-20 (CALC)); CHLORIDE 106 mmol/l (95-108); CREATININE 0.6 mg/dL (0.5-1.0); ETHYL ALCOHOL 0 mg/dl (0-30); GFR > 60 ML/MIN (>=60 (CALC)); GFR FOR AFR.AMER. > 60 ML/MIN (>=60 (CALC)); LIPASE 18 u/l (23-300); MAGNESIUM 1.6 mg/dL (1.6-2.3); POTASSIUM 3.6 mmol/l (3.5-5.1); SGOT/AST 24 u/l (9-36); SODIUM 136 mmol/l (137-146); TOTAL PROTEIN 6.7 g/dL (6.3-8.2)
[2020-04-14] MEDS ORDERED: ROWEEPRA500 MG PO (14:50)
[2020-04-14] MEDS ORDERED: LISINOPRIL20 MG PO (14:50)
[2020-04-14] MEDS ORDERED: LEVOTHYROXIN50 MCG PO (14:50)
[2020-04-14] MEDS ORDERED: TOPROL XL25 MG PO (14:51)
[2020-04-14] MEDS ORDERED: FLUOXETINE20 MG PO (14:51)
[2020-04-14 14:52] LABS: ALKALINE PHOSPHATASE 211 u/l (38-126); ANION GAP 11 (6-22 (CALC)); CARBON DIOXIDE 23 mmol/l (22-30)
--- NOTE | 2020-04-14 15:00 | NUR ---
PT REFUSING DARBY CATHETER FOR URINE OR STRAIGHT CATH. PT AGREEABLE TO WICK. PERICARE PROVIDED, DRIED BM CLEANSED FROM AREA. PT TOLERATED WELL. WICK TO CONT SUCTION.
--- NOTE | 2020-04-14 15:07 | NUR ---
PT DECLINED MEHNAZ PALMER AWARE
--- NOTE | 2020-04-14 15:17 | NUR ---
PT REFUSING MEDICATIONS AND MD AWARE
--- NOTE | 2020-04-14 15:50 | NUR ---
PT MEDICATED WITH ATIVAN PER EDP ORDER. PT CONTINUING TO YELL " GET ME OUT OF HERE. GET ME OUT OF HERE."
--- NOTE | 2020-04-14 16:16 | NUR ---
PT RESTING PEACEFULLY WITHOUT DISTRESS
[2020-04-14 16:41] LABS: URINE BILIRUBIN - DIPSTICK NEGATIVE (NEGATIVE); URINE BLOOD DIPSTICK TRACE-INTACT (NEGATIVE); URINE COLOR YELLOW; URINE GLUCOSE - DIPSTICK NEGATIVE (NEGATIVE); URINE KETONE NEGATIVE (NEGATIVE); URINE LEUK ESTERASE TRACE (NEGATIVE); URINE PH 5.5 (4.5-8.0); URINE PROTEIN - DIPSTICK NEGATIVE (NEG-TRACE); URINE SPECIFIC GRAVITY 1.025; URINE UROBILINOGEN - DIPSTICK 0.2 E.U./dL (0.2)
[2020-04-14 16:47] LABS: URINE NITRITE - DIPSTICK POSITIVE (Negative)
[2020-04-14 16:48] LABS: URINE BACTERIA MODERATE hpf; URINE RBC 0-2 RBC/hpf (0-5); URINE SQUAMOUS EPITHELIAL CELL FEW EPI/hpf (0-FEW)
--- NOTE | 2020-04-14 17:01 | NUR ---
PLACED PT ON OXYGEN SHE WAS SLEEPING SHE WAS SNORING AND HER OXYGEN DIPPED T0 89. ONCE SHE WAS AWAKEN WITH OXYGEN PLACED AT 2L SHE IS NOW OXYGENATING AT 100
--- NOTE | 2020-04-14 17:18 | NUR ---
PT CURRENTLY GETTING SWALLOW EVAL
--- NOTE | 2020-04-14 17:50 | NUR ---
PT WITHOUT DISTRESS SWALLOW EVAL PT IS ONLY ABLE TO HAVE THICKENED AND PUREED FOOD. PILLS MUST BE CRUSHED IN APPLESAUCE
--- NOTE | 2020-04-14 17:56 | NUR ---
PT REFUSED TROPONIN
--- NOTE | 2020-04-14 18:23 | NUR ---
PT WITHOUT DISTRESS
--- NOTE | 2020-04-14 19:08 | NUR ---
REPORT CALLED AND GIVEN, REID ORTEGA. NO QUESTIONS OR COMPLAINTS
--- NOTE | 2020-04-14 20:10 | NUR ---
READJUSTED PT AND SHE WIGGLES BACK TO THE SAME POSITION.
--- NOTE | 2020-04-14 21:30 | NUR ---
MEDICATED PER ORDER. NO CHANGE IN CONDITION.
--- NOTE | 2020-04-14 22:13 | NUR ---
PT INCONTINENT OF SMALL ABOUNT OF LIQUID STOOL. CLEANSED PT AND CHANGED LIMEN. PURWICK READJUSTED.
--- NOTE | 2020-04-14 23:15 | NUR ---
UPDATED JORDAN MATHEWS ON PT AND JORDAN LAM HERE TO TRANSPORT.
[2020-04-14 23:30] VITALS: BP 120/60
--- NOTE | 2020-04-14 23:30 | NUR ---
RECEIVED PT FROM ER. AWAKE ALERT ORIENTED TO SELF AND PLACE. TRANSFERRED TO ICU BED 7 WITHOUT INCIDENT. CLEANED OF STOOL, NEW PURWICK IN PLACE. CALL [facility] IN REACH.
[2020-04-14 23:45] VITALS: BP 118/59
[2020-04-15] VITALS (15 sets, daily range): BP systolic 84–158; BP diastolic 42–78
--- NOTE | 2020-04-15 | NUR ---
PT WITH L AKA, L ARM WEAK FROM PREVIOUS CVA. PT ORIENTED TO SELF AND PLACE. PT ONLY BELONGINGS ARE UPPER DENTURES, NO LOWERS FOUND. CALL [facility] IN REACH.
--- NOTE | 2020-04-15 02:00 | NUR ---
PT WITH EYES CLOSED, NO DISTRESS NOTED. CALL [facility] IN REACH.
--- NOTE | 2020-04-15 04:00 | NUR ---
PT WITH EYES CLOSED, REPONDED TO VERBAL STIMULI. NO CHANGE IN NEURO ASSESSMENT. CALL WHARTON IN PLACE.
--- NOTE | 2020-04-15 05:00 | NUR ---
PT WITH LIQUID STOOL. PT CLEANED AND LINENS CHANGED NEEDED.
--- NOTE | 2020-04-15 06:00 | NUR ---
PT WITH EYES CLOSED, NO DISTRESS. CALL [facility] IN REACH.
--- NOTE | 2020-04-15 07:41 | NUR ---
PT REPORT RECEIVED FROM RICE DRIER. STATES FEELS BETTER FROM YESTERDAY.
[2020-04-15 08:22] LABS: ALBUMIN 3.4 g/dL (3.2-5.0); ALKALINE PHOSPHATASE 214 u/l (38-126); ANION GAP 11 (6-22 (CALC)); BILIRUBIN, TOTAL 0.5 mg/dL (0.0-1.4); BUN 6 mg/dL (8-23); BUN/CREATININE RATIO 10 (12-20 (CALC)); CALCULATED LDLCHOLESTEROL 60 mg/dL (62-129 (CALC)); CARBON DIOXIDE 20 mmol/l (22-30); CHLORIDE 114 mmol/l (95-108); CHOLESTEROL HDL RATIO 2.9 (<4.4 (CALC)); CREATININE 0.6 mg/dL (0.5-1.0); GFR > 60 ML/MIN (>=60 (CALC)); GFR FOR AFR.AMER. > 60 ML/MIN (>=60 (CALC)); HDL CHOLESTEROL 48 mg/dL (>=40); MAGNESIUM 1.5 mg/dL (1.6-2.3); POTASSIUM 3.6 mmol/l (3.5-5.1); SGOT/AST 24 u/l (9-36); SODIUM 140 mmol/l (137-146); TOTAL CHOLESTEROL 138 mg/dl (0-199); TOTAL PROTEIN 6.4 g/dL (6.3-8.2); TOTAL TRIGLYCERIDES 151 mg/dl (30-149); VLDL CHOLESTROL 30 mg/dl (0-48 (CALC))
--- NOTE | 2020-04-15 10:24 | NUR ---
PT RESTING QUITLY ON STRETCHER, LEFT LEG AMPUTATED ABOVE KNEE, RIGHT LEG CROSSED OVER, DID NOT APPEAR TO BE COMFORTABLE SO TRIED TO READJUST HER POSITION AND SHE STATES THAT IS HOW SHE WANTS TO LAY. SIDE RAILS UP, CALL LIGHT WITHIN REACH
--- NOTE | 2020-04-15 12:29 | NUR ---
PT RESTING QUIETLY AT THIS TIME, IS VERY SARCASTIC TO STAFF AND STATING SHE HATES THIS ROOM AND WANTS TO GET OUT OF HERE
[2020-04-15 13:12] LABS: HEMATOCRIT 32.5 % (37.0-47.0); HEMOGLOBIN 10.3 g/dl (12.0-16.0); IMMATURE GRANULOCYTES 0.5 % (0.0-5.0); MEAN CELL VOLUME 98.2 fL CALC (80.0-100.0); MEAN CORPUSCULAR HGB 31.1 pG CALC (26.0-32.0); MEAN CORPUSCULAR HGB CONC 31.7 g/dL CAL (32.0-36.0); NEUT# 10.82 thou/uL (2.00-7.15); RED BLOOD COUNT 3.31 mill/uL (4.20-5.60); RED CELL DISTRI WIDTH 13.4 % (11.5-15.5)
--- NOTE | 2020-04-15 13:27 | NUR ---
MEDIUM WATERY YELLOW BOWEL MOVEMENT. LINENS CHANGED
--- NOTE | 2020-04-15 13:41 | NUR ---
Pt seen for f/u of from initial ST evaluation. Upon entry, the pt requested the need for nursing assitance to change bedding from bowel movement. She was alert and oriented x2 laying in bed. PT assisted in sitting pt up to 90 degrees. Pt refused trials of soft solids and requested pureed solids for therapy. Initial assessment orders did not go through from 04/14, so pt was still NPO w/o having received any fluids since admission. She requested water in which she participated in 6 trials of nectar thick liquids using single sips and consecutive swallows of nectar thick liquids w/o overt signs of aspiration. She showed adequate bolus clearance of pureed solids with delayed oral transit time during all trials. Continue with current diet recommendation of pureed solids and nectar thick liquids for all meals and intake.
[2020-04-15 13:48] LABS: TSH, 3RD GENERATION 1.7 uIU/mL (0.47 - 4.68)
--- NOTE | 2020-04-15 14:05 | NUR ---
PT CONSTANTLY CALLING FOR SOMEONE TO COME IN TO ROOM, I NEED HELP, I NEED HELP AND WHEN YOU GO IN THERE SHE SAYS I HATE THIS ROOM, I JUST WANT TO GO HOME, OR I NEED TO GET UP AND GET THE HELL OUT OF HERE. TRIED COMFORT MEASURES, TRIED TURNING ON TV, AND SHE STATES TURN THAT DAMN THING OFF, OPENED UP BLINDS AND WAS TOLD TO CLOSE THEM. LEAVE ROOM AND START CHARTING AND PT STARTS IN WITH I NEED SOMEONE TO COME INTO MY ROOM.
--- NOTE | 2020-04-15 14:58 | NUR ---
OCCUPATIONAL THERAPY HERE TO WORK WITH PT.
--- NOTE | 2020-04-15 15:26 | NUR ---
OCCUPATIONAL THERAPY IN SPEAKING WITH PT, PT IS TRACKING WITH AMI EYES, CAN LIFT ARM AND HAS GRASPS ON AMI SIDES BUT LEFT SIDE IS MUCH WEAKER. PT REMAINS ALERT/TO PERSON AND PLACE, BUT NOT TIME OR YEAR.
--- NOTE | 2020-04-15 16:13 | NUR ---
PT RESTING AT THIS TIME WATCHING [employer]. SEEMS SLIGHTLY LESS ANXIOUS, VITAL SIGNS REMAIN STABLE, CALL LIGHT WITHIN REACH, SIDE RAILS UP.
--- NOTE | 2020-04-15 17:39 | NUR ---
PT SLEEPING AT THIS TIME AND DOESNT WANT TO WAKE UP TO EAT, TOLD HER WE WOULD SAVE IT AND WARM IT UP LATER FOR HER IF SHE IS HUNGRY. VITAL SIGNS REMAIN STABLE. NO COMPLAINTS AT THIS TIME
--- NOTE | 2020-04-15 20:00 | NUR ---
PATIENT AWAKE YELLING OUT FOR HER , "PATSY GET ME OUT OF HERE", ALTERNATING WITH "YOU SUCK." ANXIOUS AND AGITATED. ATTEMPTS TO CALM WITH VERBAL CUES. EMOTIONAL SUPPORT AND REASSURANCE PROVIDED. SPEECH SLT SLURRED. ABLE TO STATE HER NAME AND CORRECTLY. PATIENT KNOWS SHE IS IN [facility] IN [place]. DOES NOT FOLLOW DIRECTIONS WELL. RESP NON-LABORED. VSS. NS INFUSING AT 100 ML/HR INTO LAC IV SITE. STEAM BONE PRESS TENDER SHOWS SR. EXPLAINED PLAN OF CARE. CALL WHARTON IN REACH. PAITENT IS INCONTINENT OF SMALL AMOUNT OF YELLOWISH MUCOUSY STOOL. SERA-CARE AND PARTIAL BED CHANGE.
--- NOTE | 2020-04-15 20:40 | NUR ---
SONATA GIVEN FOR SLEEP. PATIENT WAS COOPERATVIE WITH TAKING HS MEDS.
--- NOTE | 2020-04-15 21:00 | NUR ---
BENITO INCONTINCHASTITY RIBEIRO, STOOL OBTAINED FOR C DIFF SAMPLE AND SENT TO LAB.
--- NOTE | 2020-04-15 21:40 | NUR ---
PER LAB WAS C DIFF POSITIVE FOR TOXIN WELL ANTIGEN.
[2020-04-15 21:41] LABS: C. DIFFICILE TOXIN A&B POSITIVE (NEGATIVE)
--- NOTE | 2020-04-15 22:15 | NUR ---
PATIENT CONTINUES TO HAVE PERIODS OF YELLING OUT AND CARRYING ON. MEDICATED WITH XANAX ORDERED FOR ANXIETY.
[2020-04-16] VITALS (10 sets, daily range): BP systolic 126–161; BP diastolic 59–77
--- NOTE | 2020-04-16 | NUR ---
SLEEPING SOUNDLY. NOT DISTURBED. RESP NON-LABORED. VSS. SR ON MONITOR.
--- NOTE | 2020-04-16 02:00 | NUR ---
SLEEPIBG SOUNDLY. RESP NON-LABORED. SR ON MONITOR.
--- NOTE | 2020-04-16 04:00 | NUR ---
PATIENT HAS SLEPT WELL SINCE XANAX GIVEN EARLIR. RESP EVEN AND UNLABORED. VSS. IV INFUSING WITHOUT INCIDENT.
--- NOTE | 2020-04-16 06:00 | NUR ---
INCONTINENT AGAIN OF STOOL, SERA-CARE GIVEN, BARRIER OINT APPLIED. BRIEF APPLIED. XANAX GIVEN FOR ANXIETY.
--- NOTE | 2020-04-16 07:23 | NUR ---
PT REPORT RECEIVED, PT CONTINUES TO YELL PATSY, GET ME OUT OF HERE, HELP ME PATSY GET ME OUT OF HERE, BECOMING MORE UPSET. VITAL SIGNS STABLE
--- NOTE | 2020-04-16 08:26 | NUR ---
SWALLOW THERAPIST IN WITH PT, PT VERY AGRESSIVE AND REFUSING TO DO ANYTHING THERAPIST IS ASKING HER TO DO.
--- NOTE | 2020-04-16 08:41 | NUR ---
Patient received supine in bed. Patient repositioned upright in bed by SALES WAREHOUSE DRIVER and RN. Patient frequently requesting to speak with her . RN has made attempts to contact her via phone this morning. Pt on 2L via nasal cannula. Dr. Mercado at bedside to assess patient. Patient with increasing audible wheezing on inspiration, which was not present on admission. Pt is tachypneic. PO trials of pureed solids and nectar thick liquids provided. Patient presented with improved oral transit time of both liquids and solids since start of care; however, multiple swallows needed per bolus presentation. Decreased hyolaryngeal elevation appreciated. No overt s/s of penetration/aspiration were observed. At this time recommend continue current diet of pureed solids and nectar thick liquids. Discussed with Dr. Mercado regarding considerations for repeat chest x-ray. If new pulmonary disease, may need to consider a modified barium swallow study. Diet advancement not appropriate at this time given respiratory and mental status. Will continue to follow closely.
--- NOTE | 2020-04-16 08:51 | NUR ---
FINALLY WAS ABLE TO GET HOLD OF PTS SIGNIFICANT OTHER. HE STATES WHEN [facility], PT WAS LIKE SHE WAS WHEN HE BROUGHT HER INTO ER, STATES SHE COULDNT MOVE ON OWN, AND HE COULD NOT TAKE CARE OF HER, THAT MENTALLY SHE HAD GONE [place], HE STATES THAT THEY HAD PUT HER ON REMERON, SEROQUIL, AND LIBRIUM, BUT HE WOULDNT GIVE THEM TO HER BECAUSE HE THINKS SHE WAS TOO DRUGGED. SIGNIFICANT OTHER STATES THAT HE DOES NOT THINK HE CAN TAKE OF HER, AND W[facility] OR SOMEWHERE CLOSE BY. HE IS SUPPOSE TO BRING ALL OF HER MEDICATIONS TO THE ER FOR PHARMACY.
--- NOTE | 2020-04-16 10:09 | NUR ---
ORDER RECEIVED FOR ATIVAN AND SEROQUEL TO HELP CALM PT. PORTABLE CHEST XRAY OBTAINED. WILL WAIT TO SEE IF PT WILL BE ABLE TO OBTAIN THE MRI
--- NOTE | 2020-04-16 10:16 | NUR ---
CALLED MED SURG FOR BED
--- NOTE | 2020-04-16 10:32 | NUR ---
PT IS SLOWLY GETTING LESS VOCAL ON CALLING OUT FOR PATSY TO COME PICK HER UP, VITAL SIGNS STABLE. PT ATE APPROX 25% OF BREAKFAST, REFUSED AT BEGINNING TO SWALLOW CRUSHED UP PILLS IN [place] PUDDING, BUT WAS FINALLY ABLE TO GET THEM DOWN HER.
[2020-04-16] MEDS ORDERED: LEVOTHYROXIN75 MC1 PO (11:36)
--- NOTE | 2020-04-16 11:53 | NUR ---
Pt's states that pt has not taken levetiracetam and gabapentin in over 15 months and been fine without them. said that pt is on 75 mcg levothyroxine not 50 mcg.
--- NOTE | 2020-04-16 12:18 | NUR ---
PT RESTING QUIETLY, AT THIS TIME IS CALM, VITAL SIGNS STABLE, FAXED MED SHEET THAT BOYFRIEND BROUGHT TO REGISTRATION , TO PHARMACY, PT IS UNABLE TO VERIFY DOSAGES OR TIMES
--- NOTE | 2020-04-16 13:12 | NUR ---
CLEANED PT UP FROM BOWEL MOVEMENT. TRANSFERED PT TO MOBILE STRETCHER AND PT WAS TAKEN TO MRI.
--- NOTE | 2020-04-16 13:53 | NUR ---
PT WAS DOWN IN MRI WHEN TECH CALLED TO SAY PT WOULD NOT HOLD STILL, ORDER AND ASKED AND RECEIVED BY MARY FOR ATIVAN. TOOK ATIVAN DOWN TO MRI AND GAVE, PT STILL SCREAMING AND CALLING THIS STAFF AND MANAGER HEALTH BITCHES AND SHE WASNT GOING TO LAY THERE FOR TEST, CALL PATSY AND TELL HIM TO COME GET ME. TRIED TO TALK PT DOWN BUT NOT ABLE TO, WILL WAIT TO SEE IF ATIVAN TAKES EFFECT.
--- NOTE | 2020-04-16 14:11 | NUR ---
PT BROUGHT BACK FROM MRI, WOULD NOT STAY STILL FOR TEST AND GET YELLING AND SCREAMING SHE DIDNT WANT IT DONE
--- NOTE | 2020-04-16 14:17 | NUR ---
MARY HOUSTON NOTIFIED THAT PT DID NOT FINISH TEST, NOTIFIED RECEIVING MED SURG NURSE. PT HAD ANOTHER BM WILL CLEAN HER UP AND TRANSFER HER TO MED SURG
--- NOTE | 2020-04-16 14:30 | NUR ---
PATIENT TRANSFERED AT THIS TIME FROM ICU. REPORT RECEIVED BY ALIRIO ORTEGA. PATIENT YELLING OUT "PATSY" AND UNCOOPERATIVE AT THIS TIME. SIDERAILS ARE UP x3 CALL LIGHT WITHIN REACH. BED ALARM ON DUE TO PATIENT'S LEFT LEG AMPUTATION AND CONFUSING. PATIENT RE-DIRECTED AT THIS TIME ON WHERE SHE IS AND TIME. BABY MONITORED PLACE IN ROOM FOR SAFTETY. PATIENT WHEN ASK IF SHE HAS PAIN YELLED "NO"
--- NOTE | 2020-04-16 15:08 | NUR ---
PATIENT GIVE 0.5MG OF XANAX TO HELP WITH ANXIETY AT THIS TIME. PATIENT TOOK MEDICATION WITHOUT SWALLOWING DIFFICULTY. WILL CONTINUE TO MONITOR.
--- NOTE | 2020-04-16 15:45 | NUR ---
PATIENT CONTINUES TO YELL OUT "PATSY" AND YELLING OUT "PATSY GET ME OUT OF HERE". TRIED TO RE-DIRECT PATIENT AND SHE CALL NURSE A "BITCH". PATIENT SIDERAILS ARE UP X3 AND CALL LIGHT IS WITHIN REACH. WILL CONTINUE TO MONITOR. BABY MONITOR IN PLACE AND BED ALARM.
--- NOTE | 2020-04-16 19:30 | NUR ---
PT IN BED WITH EYES CLOSED. NO S/S OF DISTRESS NOTED. RESPIRATIONS EVEN AND NON LABORED. DENIES PAIN WHEN ASKED. CURSDING AT STAFF MEMBER AND REDIRECTION NOT HELPFUL AT THIS TIME. WILL CONTINUE TO OBSERVE
--- NOTE | 2020-04-16 21:14 | NUR ---
PT IN BED WITH EYES OPEN AND ABLE TO MAKE NEEDS KNOWN. SKIN WARM TO TOUCH. MEDICATIONS GIVEN AND TOLERATED WELL. INCONTINENT OF B/B AND INCONTINENCE CARE PROVIDED. FLUIDS GIVEN AND TOLERATED WELL. REPOSITIONED IN BED DUE TO CONTINUOUSLY SLIDING SELF DOWN IN BED. CAMERA ON FOR INCREASED SUPERVISION AND BED ALARM ON. WILL CONTINUE TO OBSERVE
--- NOTE | 2020-04-17 00:52 | NUR ---
PT IN BED WITH EYES CLOSED WITH NO S/SOF DISTRESS OR DISCOMFORT. BED IN LOWEST POSITION AND BED ALARM ON FOR POOR SAFETY AWARENESS AND FALL PREVENTION. NORMAL SALINE RUNNNING AT 100ML/HR. HOB ELEVATED. CALL LIGHT IS WITHIN REACH. WILL CONTINUE TO OBSERVE
--- NOTE | 2020-04-17 04:44 | NUR ---
PT IN BED WITH EYES CLOSED.NO S/SOF DISTRESS NOTED. INCONTINENT OF B/B AND INCONTINENCE CARE PROVIDED. EASILY AROUSED. IV SITE INTACT AND NO S/SOF INFECTION OR INFILTRATION. BED IN LOWEST POSITION AND CALL LIGHT IS WITHIN REACH. FLUIDS GIVEN AND TOLERATED WELL. WILL CONTINUE TO OBSERVE.
[2020-04-17 04:53] VITALS: BP 153/77
--- NOTE | 2020-04-17 07:37 | NUR ---
REPORT RECEIVED. PT RESTING IN BED ON RIGHT SIDE WITH EYES CLOSED AND NO SIGNS OF DISTRESS; AWAKENS TO VERBAL STIMULI. DROWSY AND ORIENTED X 3; GARBLED SPEECH DUE TO DROWSINESS. C/O 5/10 LEFT ARM PAIN; RESPIRATIONS EVEN AND UNLABORED ON ROOM AIR; EXPIRATORY WHEEZING ANTERIORLY AND DIMINISHED LUNG SOUNDS POSTERIORLY. PT DISINTERESTED IN POC OR EDUCATION. SAFETY MEASURES IN PLACE. CALL LIGHT WITHIN REACH.
[2020-04-17 07:38] VITALS: BP 146/72
--- NOTE | 2020-04-17 08:18 | NUR ---
SPEECH THERAPY AT BEDSIDE.
--- NOTE | 2020-04-17 09:15 | NUR ---
RT AT BEDSIDE FOR BREATHING TREATMENT. PT ASSISTED ONTO BEDPAN FOR SMALL LOOSE BOWEL MOVEMENT.
--- NOTE | 2020-04-17 10:06 | NUR ---
Patient sleeping upon RACKING TECHNICIAN arrival to room. Patient repositioned upright in bed for breakfast tray. Patient on room air. Audible wheezing appreciated at baseline. Patient remains confused, requesting to go home and see her . Patient given therapeutic PO trials of nectar thick liquids via straw and pureed solids. Patient presented with an increased oral transit time, lingual pumping, suspected delayed pharyngeal swallow, decreased hyolaryngeal excursion, and multiple swallows per bolus presentation. Patient presented with no overt coughing or throat clearing following PO trials. Vocal quality was clear. At this time recommend continue current diet of pureed solids and nectar thick liquids. Aspiration precautions to include: HOB at 90 degrees for PO intake, small bites and sips, feed slowly, alternate liquids and solids, and remain upright for 30 minutes after PO intake.
--- NOTE | 2020-04-17 10:31 | NUR ---
Pt alert and oriented x3 laying in bean position. Pt was instructed in performing oral hygiene and grooming. Pt agreed to participate in the beginning and required Max A to brush top dentures, pt did not have bottom dentures in place. Pt refused help with combing her hair verbalizing it hurts when others do it. Pt did held comb with R hand and reached to comb her hair. Pt did not want to cooporate towards the end of session and wanted to be left alone. [facility] SCORE 12
--- NOTE | 2020-04-17 10:32 | NUR ---
PHYSICAL THERAPY AT BEDSIDE.
--- NOTE | 2020-04-17 13:00 | NUR ---
PT CONTINOUSLY YELLING OUT "I WANT TO GO HOME!" AND "PATSY!" RELAXATION TECHNIQUES ENCOURAGED. PT CAN VERBALLY AGRESSIVE. BED BATH GIVEN AFTER INCONTIENCE. DECLINES MRI.
[2020-04-17 15:40] VITALS: BP 160/75
--- NOTE | 2020-04-17 16:00 | NUR ---
PT REMOVING GOWN AND BLANKETS; INCONTINENT OF STOOL. PARTIAL BATH GIVEN WITH LINEN CHANGE. NO LONGER CALLING OUT.
--- NOTE | 2020-04-17 16:08 | NUR ---
Patient is seen for attempts at bedside sitting. She was cantankerous during treatment. She performed rolling to the left side with min mod assist of 1 and bed rail. She worked on supine to sit but could only repeat x 2 as she was fatigued. She maintained static sitting for 2 min unsupported but insisted on transferring BTB without attempting SPT. Am Pac is unchanged as are our recommnedations for DC
[2020-04-17 20:00] VITALS: BP 155/76
--- NOTE | 2020-04-17 20:00 | NUR ---
REPORT RECEIVED DIEGO. PT IS LAYING IN BED SEMI-GREEN & TURNED ONTO HER LEFT SIDE, SLEEPING. NO S/SX OF DISTRESS OR DISCOMFORT OBSERVED AT THIS TIME. ABLE TO AWAKE W/ VERBAL STIMULI. RESPIRATIONS ARE EVEN & NON-LABORED ON ROOM. # 20 PIV IN LAC- SL; PATENT, CLEAN, DRY, AND INTACT. DROPPLET ISOLATION IN PLACE D/T C. DIFF, SAFETY MEASURE IN PLACE & CALL LIGHT WIHIN REACH.
--- NOTE | 2020-04-18 01:44 | NUR ---
PT LAYING IN BED SLEEPING, NO S/SX OF DISTRESS OR DISCOMFORT OBSERVED AT THIS TIME; EASILY AROUSABLE TO VERBAL STIMULI AND COOPERATIVE WITH SALES REPRESENTATIVE METALS. RESPIRATIONS EVEN AND NON-LABORED ON ROOM AIR. NO NEEDS OR CONCERNS EXPRESSED AT THIS TIME. SAFETY MEASURES IN PLACE, CALL LIGHT WITHIN REACH. WILL CONTINUE TO MONITOR.
[2020-04-18 04:00] VITALS: BP 148/69
--- NOTE | 2020-04-18 04:00 | NUR ---
PT LAYING IN BED SLEEPING, NO S/SX OF DISTRESS OR DISCOMFORT OBSERVED AT THIS TIME; RESPIRATIONS EVEN AND NON-LABORED ON ROOM AIR. SAFETY MEASURES IN PLACE, CALL LIGHT WITHIN REACH. WILL CONTINUE TO MONITOR.
--- NOTE | 2020-04-18 07:00 | NUR ---
SHIFT CHANGE REPORT, PT AWAKE AND ALERT, DENIES PAIN BUT STATES SHE WANTS TO GO HOME, ORIENTED TO PERSON, ASKING FOR SPOUSE AND DOG, BED ALARM IN PLACE, CALL WHARTON IN REACH AND BED IN LOWEST POSITION.
[2020-04-18 08:05] VITALS: BP 156/76
--- NOTE | 2020-04-18 12:00 | NUR ---
REFUSED LABE AFTER BEING STUCK TWICE, NURSE ATTEMPTED TO COLLECT BUT WAS UNSUCCESSFUL, COTINUE TO SHOUT LOUDLY STATING SHE WANTS TO GO HOME, REORIENTED, ASSISTED WITH BLADDER ELIMINATION AND SERA CARE, ALL NEEDS ADDRESSED.
--- NOTE | 2020-04-18 15:53 | NUR ---
RESTING IN BED QUIETLY AT THIS TIME, ALL NEEDS ADDRESSED, CALL WHARTON IN REACH.
[2020-04-18 16:49] VITALS: BP 150/54
[2020-04-18 19:00] VITALS: BP 160/73
--- NOTE | 2020-04-18 19:00 | NUR ---
PT REFUSED LABS TODAY, DR REAVES NOTIFIED AND STATED TO DO AM LABS ONLY TOMORROW AND CX TODAYS.
--- NOTE | 2020-04-18 19:15 | NUR ---
REPORT RECEIVED. ASSESSMENT COMPLETE. SAFETY MEASURES IN PLACE. CALL LIGHT WITHIN REACH.
--- NOTE | 2020-04-19 | NUR ---
PT LAYING IN BED RESTING, NO S/SX OF DISTRESS OR DISCOMFORT OBSERVED AT THIS TIME; RESPIRATIONS EVEN AND NON-LABORED ON ROOMAIR. SAFETY MEASURES IN PLACE, CALL LIGHT WITHIN REACH. WILL CONTINUE TO MONITOR.
[2020-04-19 04:17] VITALS: BP 141/72
[2020-04-19 05:18] LABS: HEMOGLOBIN 12.1 g/dl (12.0-16.0); MEAN CELL VOLUME 96.5 fL CALC (80.0-100.0); RED BLOOD COUNT 4.04 mill/uL (4.20-5.60); RED CELL DISTRI WIDTH 13.2 % (11.5-15.5)
[2020-04-19 05:42] LABS: ALBUMIN 3.2 g/dL (3.2-5.0); ALKALINE PHOSPHATASE 172 u/l (38-126); BILIRUBIN, TOTAL 0.5 mg/dL (0.0-1.4); BUN 7 mg/dL (8-23); BUN/CREATININE RATIO 12 (12-20 (CALC)); CHLORIDE 103 mmol/l (95-108); CREATININE 0.6 mg/dL (0.5-1.0); GFR > 60 ML/MIN (>=60 (CALC)); GFR FOR AFR.AMER. > 60 ML/MIN (>=60 (CALC)); SGOT/AST 24 u/l (9-36); SODIUM 139 mmol/l (137-146); TOTAL PROTEIN 5.9 g/dL (6.3-8.2)
[2020-04-19 06:06] LABS: ANION GAP 9 (6-22 (CALC)); CARBON DIOXIDE 30 mmol/l (22-30); POTASSIUM 2.6 mmol/l (3.5-5.1)
[2020-04-19 08:00] VITALS: BP 139/67
--- NOTE | 2020-04-19 09:00 | NUR ---
PT SEEN RESTING IN THE BED WITH COVERS OVER HER HEAD. WHEN ROUSED SHE IS INTERACTIVE, SLIGHTLY CONFUSED. LUNGS CLEAR, RA. VSS.
--- NOTE | 2020-04-19 14:49 | NUR ---
PT CONTINUES BEFORE, EATING LITTLE. CDT PRECAUTIONS IN PLACE. PT DOES TAKE HER MEDS WITHOUT ANY PROBLEM.
[2020-04-19 16:45] VITALS: BP 122/55
--- NOTE | 2020-04-19 17:04 | NUR ---
PT CONTINUES AT REST IN THE BED WITHOUT DISTRESS OR COMPLAINT.
[2020-04-19 18:58] VITALS: BP 148/83
--- NOTE | 2020-04-19 20:30 | NUR ---
ASSESSMENT COMPLETED AT THIS TIME. PT HAS BEEN YELLING INTO HALLWAY "I WANT TO GO HOME." WE TALKED WITH HER REGARDING HER STAY AND POC, SHE ACKNOWLEDGED UNDERSTANDING. PT WAS ABLE TO TELL ME HER NAME, AND LOCATION, BUT THEN SHE ASKED FOR ME TO GIVE HER A BLANKET, PT VERBALIZED THAT HE IS ON THE COUCH IN HER ROOM POINTING THAT DIRECTION. I REORIENTED HER TO THE FACT THAT NO-ONE IS IN THE ROOM WITH HER OTHER THAN ME, SHE QUICKLY ACKNOWLEDGED THIS AND STATED THAT HE MUST BE AT HOME. BED ALARM IS ON AND CALL LIGHT AT SIDE.
--- NOTE | 2020-04-20 00:15 | NUR ---
PT MEDICATED ORDERS PROVIDE WITH ORAL ANTIBIOTIC THERAPY. PT WAS SLEEPING, AWOKE TO MY VOICE. NO S/O DISTRESS NOTED, PT PROMPTLY RETURNED BACK TO SLEEP. BED ALARM ON AND CALL LIGHT AT SIDE.
[2020-04-20 04:30] VITALS: BP 139/72
[2020-04-20 05:36] LABS: HEMATOCRIT 38.3 % (37.0-47.0); HEMOGLOBIN 11.5 g/dl (12.0-16.0); IMMATURE GRANULOCYTES 0.9 % (0.0-5.0); MEAN CELL VOLUME 99.2 fL CALC (80.0-100.0); MEAN CORPUSCULAR HGB 29.8 pG CALC (26.0-32.0); NEUT# 4.97 thou/uL (2.00-7.15); RED BLOOD COUNT 3.86 mill/uL (4.20-5.60); RED CELL DISTRI WIDTH 13.4 % (11.5-15.5)
--- NOTE | 2020-04-20 05:50 | NUR ---
PT MEDICATED ORDERS PROVIDE. PT IS AWAKE AND WATCHING TV. NO S/O DISTRESS NOTED.
[2020-04-20 05:58] LABS: ALKALINE PHOSPHATASE 146 u/l (38-126); ANION GAP 11 (6-22 (CALC)); BILIRUBIN, TOTAL 0.5 mg/dL (0.0-1.4); BUN 7 mg/dL (8-23); BUN/CREATININE RATIO 12 (12-20 (CALC)); CARBON DIOXIDE 28 mmol/l (22-30); CHLORIDE 105 mmol/l (95-108); CREATININE 0.6 mg/dL (0.5-1.0); GFR > 60 ML/MIN (>=60 (CALC)); GFR FOR AFR.AMER. > 60 ML/MIN (>=60 (CALC)); MAGNESIUM 1.7 mg/dL (1.6-2.3); SGOT/AST 25 u/l (9-36); SODIUM 140 mmol/l (137-146); TOTAL PROTEIN 5.7 g/dL (6.3-8.2)
[2020-04-20 06:06] LABS: POTASSIUM 3.7 mmol/l (3.5-5.1)
[2020-04-20 07:30] VITALS: BP 138/70
--- NOTE | 2020-04-20 07:30 | NUR ---
PATIENT IN BED YELLING AND CUSSING STATING SHE "WANTS TO GO HOME". NAVEEDENT PULLED IV SITE OUT ON PREVIOUS SHIFT WILL NOT ALLOW ANYONE TO RESTART. WHEN ASKED IF I COULD RESTART HER IV SHE STATED "HELL NO". SIDERAILS ARE UP CALL LIGHT IS WITHIN REACH AT THIS TIME RN ASSESSEMENT DONE SEE INTERVENTIONS.
[2020-04-20] MEDS ORDERED: VANTIN100 MG PO (10:34)
[2020-04-20] MEDS ORDERED: FLORASTOR250 M1 PO (10:34)
[2020-04-20] MEDS ORDERED: QUETIAPINE FUMA25 MG PO (10:34)
[2020-04-20] MEDS ORDERED: FIRVANQ25 MG/ML PO (10:34)
--- NOTE | 2020-04-20 11:46 | NUR ---
PATIENT IN BED AT THIS TIME SIDERAILS UP X 3 CALL LIGHT NEAR. BABY MONITOR IN. NO OTHER NEEDS AT THIS TIME.
--- NOTE | 2020-04-20 12:34 | NUR ---
PT SEEN FOR PT REVISIT. PT RELATIVELY COOPERATIVE. COMPLAINS SHE IS COLD. PT SAT UP ONTO THE EDGE OF THE REQURING MOD A. IN SITTING WITH USE OF BED RAIL SHE SIDE SCOOTED TOWARDS HER RIGHT SIDE. SHE SAT UP FOR APPROX 2 MINUTES WITH USE OF BED RAIL BUT EXPERIENCED TO BACKWARDS LOSS OF BALANCE. FOR INCREASED STRENGTH SHE COMPLETED RLE THER-EX CONSISITNG OF SLR, HEEL SLIDES, HIP ABD AND ANKLE PUMPS X 15 REPS. PT REFUSED TO PARTICIPATE IN SPT TRAINING. AM PAC 9 POINTS INPATIENT REHAB RECOMMENDED AT DISCHARGE
[2020-04-20 15:15] VITALS: BP 129/63
--- NOTE | 2020-04-20 16:15 | NUR ---
PATIENT RESTING IN BED AT THIS TIME DENIES ANY PAIN SIDERAILS UP X3 BED ALARM IN PLACE CALL LIGHT WITHIN REACH AT THIS TIME.
[2020-04-20 19:00] VITALS: BP 136/65
--- NOTE | 2020-04-21 01:02 | NUR ---
PT MEDICATED WITH IV ANTIBIOTIC THERAPY. NO S/O DISTRESS NOTED.
--- NOTE | 2020-04-21 01:55 | NUR ---
PT CALLED OUT NEEDING TO USE RESTROOM. PT PLACED ON BEDPAN AND 200CC OF DARK CLEAR YELLOW URINE. PT COVERED WITH BLANKETS PER COMFORT AND LIGHTS TURNED BACK DOWN.
--- NOTE | 2020-04-21 04:00 | NUR ---
LAB WAS IN WITH PT TO OBTAIN LABS, PT CALLED TO REPORT NEEDING TO GO TO THE RESTROOM. STARTED TO PLACE PT ON BEDPAN, BUT SHE HAD ALREADY GONE INCONTINENT IN BRIEF. PT CLEANED OF BROWN MODERATE SIZE PASTY STOOL OUTPUT. GROIN AREA IS VERY REDDENED, PATTED DRY AND BARRIER CREAM APPLIED. PT REPOSITIONED IN THE BED FOR COMFORT, PO FLUIDS PROVIDED AND BLANKETS X6 PLACED BACK ON PT.
--- NOTE | 2020-04-21 06:38 | NUR ---
PT MEDICATED ORDERS RECEIVED
[2020-04-21 07:15] VITALS: BP 132/70
--- NOTE | 2020-04-21 07:15 | NUR ---
PATIENT RESTING IN BED AT THIS TIME. PATIENT CONTINUES TO YELL AND SCREAM "I WANT TO GO HOME" PATIENT DENIES ANY PAIN AND ONLY STATES SHE WANTS TO GO HOME. IV REMAINS PATENT AT THIS TIME SIDERAILS ARE UP CALL LIGHT WITHIN REACH. GRANTS DIRECTOR DONE SEE INTERVENTIONS.
[2020-04-21 09:16] LABS: C. DIFFICILE TOXIN A&B NEGATIVE (NEGATIVE)
--- NOTE | 2020-04-21 11:41 | NUR ---
pt agreed to participate in physical therapy. Exercises performed with manual resistance included ankle DF 2x10, ankle PF 2x10, hip adduction 2x10, hip abduction 2x10, and leg press 2x10. Also performed SLR 1x10, quad setting 2x10, glute setting 1x10. Pt then required mod assist to achieve a sitting position which she maintained for approx 1 minute before laying back down. Inpatient rehab is recommended upon d/c. ampac=9
--- NOTE | 2020-04-21 12:27 | NUR ---
PATIENT RESTING IN BED AT THIS TIME DENIES NEEDS EXCEPTS STATES SHE WANT TO GO HOME. SIDERAILS ARE UP CALL LIGHT WITHIN REACH. BED ALARM AND MONITOR ON FOR SAFETY.
[2020-04-21 15:37] VITALS: BP 158/69
--- NOTE | 2020-04-21 15:41 | NUR ---
PATIENT RESTING IN BED AT THIS TIME CALL LIGHT WITHIN REACH SIDERAILS UP X 2 PATIENT IV FOUND DISLODGED AT THIS TIME. PROVIDER NOTIFIED AND OKAY TO LEAVE OUT.
[2020-04-21 19:00] VITALS: BP 155/78
--- NOTE | 2020-04-21 20:30 | NUR ---
PT YELLING OUT, PLACED ON BEDPAN FOR URINATION. I REMINDED PT TO USE CALL LIGHT SYSTEM INSTEAD OF YELLING OUT.
--- NOTE | 2020-04-21 22:18 | NUR ---
PT MEDICATED ORDERS PROVIDE. PT HAS BEEN YELLING OUT ALL EVENING. I INSTRUCTED HER TO USE HER CALL LIGHT WHICH IS W/IN REACH FOR PT, SHE IS TALKING ABOUT HER , SHE IS TALKING ABOUT WANTING TO GO HOME, I TALKED WITH PT AND PROVIDED MEDICATIONS, WHICH SEEMED TO HELP HER FEEL BETTER AND APPEARS CALM PRIOR TO MY LEAVING THE ROOM.
[2020-04-22 06:05] VITALS: BP 126/72
--- NOTE | 2020-04-22 07:30 | NUR ---
RECIEVED REPORT FROM JORDAN DIETZ. PT RESTING IN SEMI FOWLERS POSITION. PT DNEIES OF ANY PAINS OR NEEDS AT THIS TIME. WILL CONTINUE TO MONITOR.
[2020-04-22 08:33] VITALS: BP 142/65
--- NOTE | 2020-04-22 08:33 | NUR ---
PT RESTING IN SEMI FOLWERS POSITION UPON ENTERING ROOM. RESPIRATIONS ARE A/O X2.ASESSMENT AND VITALS COMPLETED. BP 142/65, HR 81, O2 93% ON ROOM AIR. RESPIRATIONS ARE EVEN AND UNLABORED WITH NO DISTRESS NOTED. HEART RHYTHM NORMAL. BOWEL SOUNDS ARE ACTIVE. RADIAL AND RIGHT PEDAL PULSES STRONG. LEFT SIDED WEAKNESS NOTED.PT IS A LEFT AMPUTE. NO IV PRESENT. PT DENEIS OF ANY PAINS OR DISCOMFORTS. ALL SAFETY PERCAUTIONS ARE IN PLACE WITH CALL LIGHT IN REACH, BED ALARM ACTIVATED. WILL CONTINUE TO MONITOR.
--- NOTE | 2020-04-22 09:59 | NUR ---
PT NOTe Miss Martinez was supine as entered room, patient agreed to participate in therapy session. Supine>sit(MOD A), satic seated balnce on edge of bed patient maintained about 30 seconds x 2 reps, fatigue present. Sit>supine (MIN A). In supine patient executed straight leg raise x 10, heel slide x 10, quad sets x 10, hip abduction x 10 all to right lower extremity.AMPAC 6 remains unchanged 9
--- NOTE | 2020-04-22 12:30 | NUR ---
PT REQUESTING BED MENDOZA AT THIS TIME. BED MENDOZA PLACE. RESPIRATIONS ARE EVEN AND UNLABORED ON ROOM AIR. PT DENEIS OF ANY PAINS OR DISCOMFORTS AT THIS TIME. ALL SAFETY PRECAUTIONS ARE IN PLACE. WILL CONTINUE TO MONITOR.
--- NOTE | 2020-04-22 14:42 | NUR ---
PT CONTINUELY ATTEMPTS TO GET OUT OF BED AND CALLING STAFF NAMES. COMMERCIAL ACCOUNT MANAGER CONTINUE TO REOIRENT PT TO PLACE. XANAX ADMINISTERED. PT
[2020-04-22 15:43] VITALS: BP 136/71
--- NOTE | 2020-04-22 16:20 | NUR ---
PT CONTINUE TO CLIMB OUT OF BED AND SHOUTING.ZYPREXAIM ADMINISTERED, PT TOLERATED WELL. RESPIRATIONS ARE EVEN AND UNLABORED ON ROOM AIR. PT DENIES OF ANY PAINS OR DISCOMFORTS.ALL SAFETY PRECAUTIONS ARE IN PLACE WITH CALL LIGHT IN REACH WITH BED ALARM ACTIVATED. WILL CONTINUE TO MONITOR
[2020-04-22 19:00] VITALS: BP 100/58
--- NOTE | 2020-04-22 21:00 | NUR ---
PT RESTING IN BED WITH EYES CLOSED, EASILY AROUSED TO VERBAL STIMULI, NO SIGNS OF DISTRESS NOTED, RESP EVEN AND UNLABORED. PT ALERT AND ORIENTED X2, NEEDS REINFORCMENT, REGARDING CARE, DISCUSSED POC, PT NOT INTERESTED. ASKING SALES MARKETING MANAGER TO LEAVE. DISCUSSED MEDICATIONS, PT AGREED TO TAKE BUT AGAIN STATES SHE WISHED TO BE LEFT ALONE. BED ALARM IN PLACE. ASSESSMENT COMPLETED, CALL LIGHT IN REACH,CONTINUE TO MONITOR.
--- NOTE | 2020-04-22 23:51 | NUR ---
PT RESTING IN BED, AROUSED TO VERBAL STIMULI, PT MEDICATED PER MAR, VOICES NO NEEDS OR COMPLAINTS AT THIS TIME, CALL LIGHT IN REACH,CONTINUE TO MONITOR.
--- NOTE | 2020-04-23 01:28 | NUR ---
PT YELLING OUT ASKING FOR HER , INFORMED PT THAT HER IS NOT HERE, PT ASKING TO GET DRESSED TO GO, PT CONFUSED INFORMED PT THAT SHE CAN SEE THE MD IN AM, BED ALARM FOR SAFETY, CALL LIGHT IN REACH, CONTINUE TO MONITOR.
--- NOTE | 2020-04-23 01:47 | NUR ---
PT CONTINUES TO YELL OUT, ASKED PT TO PLEASE NOT YELL OUT SHE IS DISTURBING THE OTHER PT'S, PT YELLED,"I CAN GET LOUDER!! HELP ME! MARLO COME GET ME!!, NURSING CLERICAL ASSOCIATE CALLED TO BEDSIDE. CALL LIGHT IN REACH, BED ALARM X1, CONTINUE TO MONITOR.
--- NOTE | 2020-04-23 02:05 | NUR ---
CALL MADE TO MD ASSISTANT TRACK AND FIELD COACH FOR ORDERS, PT CONTINUES TO YELL OUT, PRN ORDER OBTAINED.
--- NOTE | 2020-04-23 02:29 | NUR ---
PT LYING SIDEWAYS IN BED, YELLING OUT, NURSING CYBER SPECIAL AGENT AT BEDSIDE, PT MEDICATED WITH ATIVAN IM WITH X3 ASSIST, PT ATTEMPTING TO BITE AT STAFF, SAFETY MEASURES IN PLACE, NURSING CYBER SPECIAL AGENT REMAINS AT BEDSIDE. CALL LIGHT IN REACH,CONTINUE TO MONITOR.
[2020-04-23 04:00] VITALS: BP 141/75
--- NOTE | 2020-04-23 04:25 | NUR ---
PT IS NOW CALM, NO LONGER CALLING OUT, RESTING IN BED, CALL LIGHT IN REACH, BED ALARM FOR SAFETY, CONTINUE TO MONITOR.
[2020-04-23 05:07] LABS: HEMATOCRIT 41.4 % (37.0-47.0); HEMOGLOBIN 12.5 g/dl (12.0-16.0); MEAN CORPUSCULAR HGB 30.2 pG CALC (26.0-32.0); MEAN CORPUSCULAR HGB CONC 30.2 g/dL CAL (32.0-36.0); RED BLOOD COUNT 4.14 mill/uL (4.20-5.60); RED CELL DISTRI WIDTH 14.2 % (11.5-15.5)
[2020-04-23 05:34] LABS: ALBUMIN 3.7 g/dL (3.2-5.0); ALKALINE PHOSPHATASE 137 u/l (38-126); ANION GAP 12 (6-22 (CALC)); BILIRUBIN, TOTAL 0.5 mg/dL (0.0-1.4); BUN 12 mg/dL (8-23); BUN/CREATININE RATIO 18 (12-20 (CALC)); CARBON DIOXIDE 27 mmol/l (22-30); CHLORIDE 105 mmol/l (95-108); CREATININE 0.7 mg/dL (0.5-1.0); GFR > 60 ML/MIN (>=60 (CALC)); GFR FOR AFR.AMER. > 60 ML/MIN (>=60 (CALC)); SGOT/AST 46 u/l (9-36); SODIUM 139 mmol/l (137-146); TOTAL PROTEIN 6.7 g/dL (6.3-8.2)
[2020-04-23 08:00] VITALS: BP 148/78
--- NOTE | 2020-04-23 08:00 | NUR ---
PATIENT IS A AWAKE AND ALERT. FIDGETING AND IRRITABLE. DISTRAUGHT OVER PERSONL GRIEVENCES. VITALS TAKEN AND RECOREDED.
--- NOTE | 2020-04-23 12:00 | NUR ---
PATIENT AGITATED AND CONVICED HER WAS HERE IN THE ROOM TO TAKE HER HOME. PATIENT CALLS OUT OFTEN AND STRIPPED EVERYTHING FROM BED. BED LINES CHANGED AND BED BATH GIVEN. CM TO CHECK INTO [facility]
--- NOTE | 2020-04-23 14:33 | NUR ---
PT NOTE Patient laying across bed with right leg hanging over railing as entered room. Adjusted patient to be supine in center of bed and patient agreed to participate in therpay session. Supine>sit (MOD A) static seated balance difficult(MOD A). sit>supine (MIN A), followed w/ heel slides, ankle pumps, long arc quads x 15, hip abduction/flexion x 10 each. AMPA 6 score of 9
[2020-04-23 16:00] VITALS: BP 150/79
[2020-04-23 19:00] VITALS: BP 130/63
--- NOTE | 2020-04-23 19:00 | NUR ---
REPORT FROM DIEGO ORTEGA. ASSUMED PT CARE.
--- NOTE | 2020-04-23 20:15 | NUR ---
PT NOTED RESTING IN BED WITH EYES CLOSED. NO APPARENT DISTRESS NOTED. RESPIRATIONS EVEN AND UNLABORED. PT WAKES EASILY, OPENS EYES RESPONDS APPROPRIATELY, DENIES ANY PAIN OR DISCOMFORT. CALL LIGHT WITHIN REACH. WILL CONTINUE TO MONITOR.
--- NOTE | 2020-04-23 21:55 | NUR ---
PT MEDICATED ORDERED. REPOSITIONED IN BED AT THIS TIME. PT HAD REMOVED GOWN AND REAPPLIED, REORIENTED TO PLACE AND TIME. PT DENIES ANY PAIN OR DISCOMFORT. NO APPARENT DISTRESS. PT CALM AND ANSWERING QUESTIONS APPROPRIATELY. CALL LIGHT WITHIN REACH. WILL CONTINUE TO MONITOR.
[2020-04-24] VITALS (17 sets, daily range): BP systolic 68–143; BP diastolic 37–76
--- NOTE | 2020-04-24 01:38 | NUR ---
PT RESTING IN BED WITH EYES CLOSED. NO APPARENT DISTRESS NOTED. RESPIRATIONS EVEN AND UNLABORED. CALL LIGHT WITHIN REACH. WILL CONTINUE TO MONITOR.
--- NOTE | 2020-04-24 03:58 | NUR ---
PT RESTING IN BED WITH EYES CLOSED. NO APPARENT DISTRESS NOTED. RESPIRATIONS EVEN AND UNLABORED. CALL LIGHT WITHIN REACH. WILL CONTINUE TO MONITOR.
--- NOTE | 2020-04-24 04:18 | NUR ---
PT LETHARGIC AND HARD TO AROUSE ONLY WAKES FOR BRIEF PERIOD. CURRENT BP 77/42. NO VOIDED NOTED SINCE 1899, BRIEF DRY. PT PLACED IN [place]LEN[place] WITHOUT EFFECT. PT SATS DROPPED DOWN TO 89%. PT PLACED ON 2L/M O2 VIA NC. SAND TECHNOLOGIST OFFICE BOOKKEEPER NOTIFIED AND ORDERS RECEIVED FOR 500 ML BOLUS. NEW IV STARTED X1 ATTEMPT BY RN ON FLOOR. IV BOLUS INITIATED. WILL CONTINUE TO MONITOR.
--- NOTE | 2020-04-24 05:28 | NUR ---
BS 148
[2020-04-24 06:06] LABS: HEMATOCRIT 41.7 % (37.0-47.0); HEMOGLOBIN 12.3 g/dl (12.0-16.0); IMMATURE GRANULOCYTES 1.1 % (0.0-5.0); MEAN CELL VOLUME 103.2 fL CALC (80.0-100.0); MEAN CORPUSCULAR HGB 30.4 pG CALC (26.0-32.0); MEAN CORPUSCULAR HGB CONC 29.5 g/dL CAL (32.0-36.0); NEUT# 4.8 thou/uL (2.00-7.15); RED BLOOD COUNT 4.04 mill/uL (4.20-5.60); RED CELL DISTRI WIDTH 14.5 % (11.5-15.5)
--- NOTE | 2020-04-24 06:20 | NUR ---
BP REMAINS LOW AFTER 1.5L BOLUS OF NS. KITCHEN OPERATOR FRAME RUNNER NOTIFIED. ORDERS FOR ANOTHER 1L BOLUS. WILL CONTINUE TO MONITOR.
[2020-04-24 06:25] LABS: ANION GAP 9 (6-22 (CALC)); BUN 17 mg/dL (8-23); BUN/CREATININE RATIO 17 (12-20 (CALC)); CARBON DIOXIDE 23 mmol/l (22-30); CHLORIDE 111 mmol/l (95-108); GFR 55 ML/MIN (>=60 (CALC)); GFR FOR AFR.AMER. > 60 ML/MIN (>=60 (CALC)); POTASSIUM 5.1 mmol/l (3.5-5.1); SODIUM 139 mmol/l (137-146)
--- NOTE | 2020-04-24 07:21 | NUR ---
PT LAYING IN BED. ABLE TO OPEN EYES WHEN NAME IS CALLED, BUT UNABLE TO CONTINUE CONVERSATION. PT GOES BACK TO SLEEP. O2 VIA NC @2L IN PLACE, BREATH SOUNDS ARE CLEAR AT THIS TIME. 2L BOLUS INFUSING TO #22 RH PER ORDERS, LAST BP 101/46. ASSESSMENT COMPLETED. WILL REMAIN AT BEDSIDE.
--- NOTE | 2020-04-24 08:17 | NUR ---
DR REAVES AND Sanaz SAMUEL APRN AT BEDSIDE
[2020-04-24 08:47] LABS: URINE BILIRUBIN - DIPSTICK NEGATIVE (NEGATIVE); URINE BLOOD DIPSTICK NEGATIVE (NEGATIVE); URINE COLOR YELLOW; URINE GLUCOSE - DIPSTICK NEGATIVE (NEGATIVE); URINE KETONE TRACE mg/dL (NEGATIVE); URINE LEUK ESTERASE SMALL (NEGATIVE); URINE NITRITE - DIPSTICK NEGATIVE (Negative); URINE PROTEIN - DIPSTICK NEGATIVE (NEG-TRACE); URINE SPECIFIC GRAVITY 1.015; URINE UROBILINOGEN - DIPSTICK 0.2 E.U./dL (0.2)
[2020-04-24 09:20] LABS: URINE BACTERIA MODERATE hpf; URINE SQUAMOUS EPITHELIAL CELL MANY EPI/hpf (0-FEW); URINE TRANSITIONAL EPI. CELLS FEW hpf; URINE WBC 20-50 WBC/hpf (0-5)
[2020-04-24 09:21] LABS: URINE HYALINE CAST FEW lpf (NONE-RARE)
[2020-04-24] MEDS ORDERED: QUETIAPINE FUMA25 MG PO (11:22)
--- NOTE | 2020-04-24 11:28 | NUR ---
PT MORE AWAKE AND ALERT. ABLE TO HOLD CONVERSATION NOW. ABLE TO EAT BREAKFAST WITH NO COMPLICATIONS. O2 VIA NC @2L KEPT IN PLACE. CALL LIGHT LEFT WITHIN REACH. BED ALARM IN PLACE FOR SAFETY.
--- NOTE | 2020-04-24 12:03 | NUR ---
Patient is seen for transfer training. She is confused. She did follow instructions and is able to sit EOB. With effort, the tone in her LUE increases. She worked on supine to sit and is noted to have a decreased sense of vertical. She did recover with mod assist and verbal cues. She was also seen for SPT with mod max assist of 1. She did not maintain static sitting in chair for longer than 2 minutes. She remains a good rehab candidate to ease the burden of care and decrease her fall risk. A good, safe SPT is certainly an achievable gaol for her as well as achieving a good sitting balance Am Pac is 11 indicating the need for ECF
--- NOTE | 2020-04-24 12:15 | NUR ---
PCR SWAB SAMPLE OBTAINED FROM BOTH NARES. SAMPLE LABELED AND SENT TO LAB.
--- NOTE | 2020-04-24 17:21 | NUR ---
PT ATTEMPTING TO GET OUT OF BED AND YELLING. REORIENTED PT, BED ALARM IN PLACE. CALL LIGHT LEFT WITHIN REACH.
--- NOTE | 2020-04-24 19:10 | NUR ---
PT WAS YELLING OUT FOR A BATCH AND FURNACE MANAGER. I ENTERED THE ROOM AND SHE ASKED IF I WAS A BATCH AND FURNACE MANAGER, I INFORMED HER THAT I WAS GOING TO BE HER NURSE TOMAS AND REMINDED HER OF MY BEING WITH HER TWO NIGHTS PRIOR, SHE SAID, "IF YOU ARE NOT A BATCH AND FURNACE MANAGER GET OUT OF MY ROOM."
--- NOTE | 2020-04-24 19:50 | NUR ---
PT APPEARS CALM AT THIS TIME. SHE IS NOT YELLING OUT AT PRESENT. NO S/O DISTRESS NOTED.
--- NOTE | 2020-04-24 21:14 | NUR ---
PT MEDICATED ORDERS PROVIDE. PT WAS SLEEPING I ENTERED THE ROOM, AWOKE TO MY VOICE. NO S/O DISTRESS NOTED. CALL LIGHT AT SIDE AND PT REMINDED TO ITS USE IF NEEDS ARISE. PT ASSESSMENT COMPLETED AT THIS TIME.
--- NOTE | 2020-04-24 22:00 | NUR ---
PT IV REMOVED/SITE APPEARED HEALTHY. OFF MED SURG UNIT [facility]IA [facility], TRANSPORTED VIA ST[facility] ACCOMPANIED BY [facility] STAFF. PT APPEARED IN STABLE CONDITION UPON LEAVING AND APPEARED CALM.
--- NOTE | 2020-04-26 13:04 | NUR ---
FINAL URINE CX RESULTS SHOWS VRE SENSITIVE TO NITROFURANTOIN. PT WAS DISCHARGED WITH RX [facility] TO [facility] IN [facility]. RESULTS REPORTED TO DR GAYTAN. NEW RX FOR NITROFURANTOIN 100MG PO BID X5 DAYS CALLED IN TO [facility] IN [facility], THEY DELIVER TO THE REHAB FACILITY. PT NURSE CURT AWARE, FAXED RESULTS AND COPY OF NEW RX TO [phone]. PT AWARE IN CHANGE OF RX WELL.
== END 2020-04-24 22:00 | DRG 64 ==
LOC: ED 13:40 → ED-I 15:50 → ED 16:05 → ICU 16:06 → ED-I 16:06 → ICU 22:59 → MS2 04-16 14:30
PROVIDERS: Internal Medicine; Nurse Practitioner; Nurse Practitioner Family; ADMIT Internal Medicine; ATTEND Internal Medicine
DX: I63.9 Cerebral infarction, unspecified (principal); G92 Toxic encephalopathy; I69.354 Hemiplegia and hemiparesis following cerebral infarction affecting left non-dominant side; N39.0 Urinary tract infection, site not specified; A04.72 Enterocolitis due to Clostridium difficile, not specified as recurrent; R47.81 Slurred speech; I10 Essential (primary) hypertension; I25.10 Atherosclerotic heart disease of native coronary artery without angina pectoris; J43.9 Emphysema, unspecified; I95.9 Hypotension, unspecified; E03.9 Hypothyroidism, unspecified; F17.210 Nicotine dependence, cigarettes, uncomplicated; E78.5 Hyperlipidemia, unspecified; E11.40 Type 2 diabetes mellitus with diabetic neuropathy, unspecified; R29.717 NIHSS score 17; E87.6 Hypokalemia; G40.909 Epilepsy, unspecified, not intractable, without status epilepticus; T42.6X6A Underdosing of other antiepileptic and sedative-hypnotic drugs, initial encounter; B96.20 Unspecified Escherichia coli [E. coli] as the cause of diseases classified elsewhere; I25.2 Old myocardial infarction; Z91.128 Patient's intentional underdosing of medication regimen for other reason; Z89.612 Acquired absence of left leg above knee; Z79.84 Long term (current) use of oral hypoglycemic drugs; Z20.822 Contact with and (suspected) exposure to COVID-19
CPT/HCPCS: J1650; J2060; J3475; S0166